=== PATIENT | female | born 1960 | race Caucasian/White ===

== ENCOUNTER 2016-07-14 12:47 | Inpatient (IN) | payer OTHER ==
[~2016-07-14] VITALS: Ht 162.6 cm; Wt 75.1 kg
[~2016-07-14 12:47] MED LIST: BACTRIM DS TAB1 EACH PO; BRISDELLE7.5 MG PO; BUPROPION XL150 MG PO; CENTRUM1 TA1 PO; FLUOXETINE HCL20 M2 PO; GABAPENTIN100 M2 PO; PAXIL20 MG PO; RISPERIDONE1 M1 PO
--- NOTE | 2016-07-14 13:07 | NUR ---
PT TO TRIAGE FOR +SI/+HI. PT CALLED HER DAUGHTER TODAY AND STATED THAT SHE FEELS LIKE HURTING SOMEONE AND SHE "FEEL CRAZY", AND WANTS TO HURT HERSELF WITH NO PLAN. PT DENIES ETOH, DENIES ILLICIT DRUG USE. VSS. HX OF BIPOLAR DISEASE.
--- NOTE | 2016-07-14 13:10 | ED PSYCHIATRIC COMPLAINT ---
History of Present Illness General Chief Complaint: Psychiatric Related Complaint Stated Complaint: +SI +HI "I FEEL EVIL" Source: patient Exam Limitations: acute psychiatric disorder Vital Signs & Intake/Output Vital Signs & Intake/Output Vital Signs Date Time Temp Pulse Resp B/P Pulse O2 O2 Flow FiO2 Ox Delivery Rate 07/14 1849 96.7 76 16 136/84 98 Room Air 07/14 1347 Room Air 07/14 1257 98.8 85 16 167/98 97 Room Air Allergies Coded Allergies: NO KNOWN ALLERGIES (09/14/15) Reconcile Medications Bupropion HCl (Bupropion XL) 150 MG TAB.ER.24H 1 TAB PO QHS UNKNOWN (Reported ) Fluoxetine HCl 20 MG CAPSULE 1 CAP PO DAILY UNKNOWN (Reported) Gabapentin 100 MG CAPSULE 2 CAP PO 4 TIMES/DAY UNKNOWN (Reported) Risperidone 1 MG TABLET 1 TAB PO BID UNKNOWN (Reported) Triage Note: PT TO TRIAGE FOR +SI/+HI. PT CALLED HER DAUGHTER TODAY AND STATED THAT SHE FEELS LIKE HURTING SOMEONE AND SHE "FEEL CRAZY", AND WANTS TO HURT HERSELF WITH NO PLAN. PT DENIES ETOH, DENIES ILLICIT DRUG USE. VSS. HX OF BIPOLAR DISEASE. Triage Nurses Notes Reviewed? yes HPI: Patient presents for evaluation of suicidal ideation homicide ideation and "feeling evil". Pt has had this is the past due to bipolar disorder. compliant with medications. Patient states that she has been thinking about "doing something to someone, anyone" for a while and became particularly acute over the past 3 weeks and during the holidays. She has thought about "maybe shooting people" but she denies availability of a gun. In addition she does hear voices intermittently and her daughter confirms that the patient complained the voices were telling her to "do it". Past History Travel History Traveled to [place] past 21 day No Medical History Any Pertinent Medical History? 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 No Review of Systems Review of Systems Constitutional: Reports: no symptoms. EENTM: Reports: no symptoms. Respiratory: Reports: no symptoms. Cardiovascular: Reports: no symptoms. GI: Reports: no symptoms. Genitourinary: Reports: no symptoms. Musculoskeletal: Reports: no symptoms. Skin: Reports: no symptoms. Neurological/Psychological: Reports: see HPI. Hematologic/Endocrine: Reports: no symptoms. Immunologic/Allergic: Reports: no symptoms. All Other Systems: Reviewed and Negative Physical Exam Physical Exam General Appearance: SEE BELOW Neurological/Psychiatric: SEE BELOW Comments: General: Alert, calm, cooperative Head: Normocephalic, atraumatic Eyes: Normal inspection, no nystagmus, EOMI Ears: Normal inspection Nose: Normal inspection Throat: Moist mucosa Neck: Supple, no goiter Heart: Regular rate and rhythm, no murmurs rubs or gallops Lungs: Clear to auscultation bilaterally with good air entry Abdomen: Soft nontender nondistended, normal bowel sounds Chest: Nontender Extremities: Normal range of motion grossly, mild tremors present, no cyanosis clubbing or edema of the upper extremities Neurologic: cranial nerves II through XII grossly intact, speech clear, gait normal Psychiatric: No apparent delusions or hallucinations, no pressured speech or thought blocking SAD PERSONS Done? patient not suicidal Progress Differential Diagnosis: DEPRESSION, BIPOLAR DISORDER, PERSONALITY DISORDER Plan of Care: Orders Procedure Date/time Status Admit to inpatient psych 07/14 1936 Active Add-on Test (ER Only) 07/14 1603 Active DEPAKOTE LEVEL 07/14 1330 Complete ED CRISIS PSYCH CONSULT 07/14 1321 Active URINE DRUG SCREEN FOR ER ONLY 07/14 1309 Complete ETHANOL 07/14 1309 Complete CBC WITHOUT DIFFERENTIAL 07/14 1309 Complete BASIC METABOLIC PANEL 07/14 1309 Complete Laboratory Tests 07/14/16 1330: Valproic Acid 25.7 L, Serum Alcohol < 10.0 07/14/16 1330: Anion Gap 13, Estimated GFR > 60, BUN/Creatinine Ratio 12.0, Glucose 95, Calcium 9.7, CBC w Diff NO MAN DIFF REQ, RBC 4.63, MCV 93.5, MCH 32.3 H, RDW 13.4, MPV 7.9, Gran % 72.8, Lymphocytes % 18.2 L, Monocytes % 8.0, Eosinophils % 0.4, Basophils % 0.6, Absolute Granulocytes 3.3, Absolute Lymphocytes 0.8 L, Absolute Monocytes 0.4, Absolute Eosinophils 0, Absolute Basophils 0, PUBS MCHC 34.5, Urine Opiates Screen < 100.00, Methadone Screen < 40, Barbiturate Screen < 60, Ur Phencyclidine Scrn < 6.00, Amphetamines Screen < 100, U Benzodiazepines Scrn < 85, Urine Cocaine Screen < 50, Urine Cannabis Screen < 5.00 Comments: 07/14/2016 3:15:37 PM I HAVE UPDATED LAURA ON TEST RESULTS. VERY BUSY DAY TODAY. EXPECTING ADDITIONAL CRISIS CLINICIANS SHORTLY. 07/14/2016 5:00:50 PM patient has been evaluated by the open hearth laborer. Likely to be admitted. 07/14/2016 7:19:55 PM Laura is being admitted to inpatient psychiatry. Departure Departure Disposition: STILL A PATIENT Condition: Stable Clinical Impression Primary Impression: Severe major depression with psychotic features Referrals: SAMIA BATES MD (PCP/Family) Departure Forms: Customer Survey General Discharge Information Psych Admission Note Psychiatric Admission: I have seen and evaluated LAURA GRACE. I have also reviewed all the pertinent lab results and diagnostic results. LAURA GRACE will be admitted to our inpatient Psychiatric unit for treatment and care. LAURA GRACE will be admitted to our inpatient Psychiatric unit for treatment and care.
--- NOTE | 2016-07-14 13:10 | NUR ---
RECIEVED TO RIK Asher UP TO BATHROOM. DTR AT BEDSIDE
--- NOTE | 2016-07-14 13:30 | NUR ---
BLOOD DRAWN AND SENT TO LAB 1SST 1 LAV URINE ALSO COLLECTED AND SENT
--- NOTE | 2016-07-14 13:34 | NUR ---
PT ON EDGE OF STRETCHER. STATES SHE HAS BEEN DEPRESSED AND HAVING THOUGHTS OF HARMING OTHERS. DENIES CONCRETE PLAN TO HARM ANYONE. STATES SHE HEARS HER OWN VOICE TELLING HER WHAT TO DO AND IT KEEPS REPEATING IN HER HEAD. STATES SHE FEELS ANXIOUS AT PRESENT BUT IS COOPERATIVE. DTR AT BEDSIDE
[2016-07-14 13:46] LABS: ABSOLUTE BASOPHIL COUNT 0 /CUMM (0.0-0.2); ABSOLUTE EOSINOPHIL COUNT 0 /CUMM (0.0-0.7); ABSOLUTE GRANULOCYTE CT 3.3 /CUMM (1.4-6.5); ABSOLUTE LYMPH COUNT 0.8 /CUMM (1.2-3.4); ABSOLUTE MONOCYTE COUNT 0.4 /CUMM (0.10-0.60); BASOPHIL % 0.6 % (0.0-2.0); EOSINOPHIL % 0.4 % (0-5); GRANULOCYTE % 72.8 % (42.2-75.2); HEMATOCRIT 43.2 % (37-47); MEAN CORPUSCULAR HGB 32.3 PG (27.0-31.0); MEAN CORPUSCULAR HGB CONC 34.5 G/DL (33.0-37.0); MEAN CORPUSCULAR VOLUME 93.5 FL (81.0-99.0); MEAN PLATELET VOLUME 7.9 FL (7.4-10.4); PLATELET COUNT 195 /CUMM (130-400); RBC DISTRIBUTION WIDTH 13.4 % (11.5-14.5); RED BLOOD CELL CT 4.63 /CUMM (4.20-5.40); WHITE BLOOD CELL COUNT 4.6 /CUMM (4.8-10.8)
--- NOTE | 2016-07-14 15:28 | NUR ---
PT SITTING ON EDGE OF STRETCHER WITH DTR, CALM AND COOPERATIVE. PT STATES NO NEEDS, STATES SHE ATE LUNCH
--- NOTE | 2016-07-14 15:58 | NUR ---
PT MOVED TO ROOM 14.
--- NOTE | 2016-07-14 15:58 | NUR ---
CRISIS NOTIFIED THAT TOX SCREEN IS NEGATIVE. DTR WAITING WITH PT, HOPES TO BE HERE WHEN SEEN BY CRISIS
--- NOTE | 2016-07-14 16:53 | ED PSYCH CRISIS CONSULTATION ---
Crisis Consult Basic Assessment Date of Consult: 07/14/16 Responsible Person/Accompanied By: came in with daughter Insurance Authorization: Insurance #1: Insurance name: AMINA WAY Phone number: Policy number: [id number] Group number: Authorization number: ED Provider: Patient's ED Provider: MAILE GAN MD Primary Care Physician: Patient's PCP: SAMIA BATES MD PCP's Current Psychiatrist: Mahsa Byers APRN in [place] Chief Complaint: Psychiatric Related Complaint Patient's Quote: "racing thoughts" Present Illness: Pt is a 56 year old female, arriving to ER with her daughter Gabriela. Pt has been admitted to [facility] in 2016 twice for a similiar presentation. Pt states she is having intrusive thoughts about hurting someone, she reprts she is aware she does not want to hurt anyone, primarily it is the thought that is bothersome. She reports pervasive thinking about how she had been unfaithful in her marriage 10 years ago, she often "makes up stories about how she has cheated on her with other men", pt states "I feel evil:", Pt admits she misses her medications often, she has a history of noncompliance specfically with IOP level of care, and medication management. Pt admits she drinks regularly atleast 3 times a week several glasses of wine each sitting. She does not indicate this to be problematic. Pt tox screen is negative. She has a history of Major depressive D/O recurrent with psychosis. Pt is a Mother to 5 children her youngest is 26 she lives in [place] with him and her . She spends a lot of time alone at home, which is not helpful when her symptoms become unmangeable. Patient's Address: [address] [place] [address] Other Phone Number: Who Do You Live With? Family Family/Informants Interviewed: Gabriela works as an RN here on [address], she supports her Mother's admission and offered she is concerned that she most likely has not been compliant with medications. Allergies - Coded Allergies: NO KNOWN ALLERGIES (09/14/15) Current Medications - Scheduled Medications Bupropion HCl (Bupropion XL) 150 MG TAB.ER.24H 1 TAB PO QHS UNKNOWN #30 ( Reported) Entered as Reported by GABRIELE DAN on 03/02/161923 Fluoxetine HCl 20 MG CAPSULE 1 CAP PO DAILY UNKNOWN #30 (Reported) Entered as Reported by GABRIELE DAN on 03/02/161923 Gabapentin 100 MG CAPSULE 2 CAP PO 4 TIMES/DAY UNKNOWN #211 (Reported) Entered as Reported by GABRIELE DAN on 03/02/161924 Risperidone 1 MG TABLET 1 TAB PO BID UNKNOWN #60 (Reported) Entered as Reported by GABRIELE DAN on 03/02/161922 Laboratory Results: Laboratory Tests 07/14/16 1330: Valproic Acid 25.7 L, Serum Alcohol < 10.0 07/14/16 1330: Anion Gap 13, Estimated GFR > 60, BUN/Creatinine Ratio 12.0, Glucose 95, Calcium 9.7, CBC w Diff NO MAN DIFF REQ, RBC 4.63, MCV 93.5, MCH 32.3 H, RDW 13.4, MPV 7.9, Gran % 72.8, Lymphocytes % 18.2 L, Monocytes % 8.0, Eosinophils % 0.4, Basophils % 0.6, Absolute Granulocytes 3.3, Absolute Lymphocytes 0.8 L, Absolute Monocytes 0.4, Absolute Eosinophils 0, Absolute Basophils 0, PUBS MCHC 34.5, Urine Opiates Screen < 100.00, Methadone Screen < 40, Barbiturate Screen < 60, Ur Phencyclidine Scrn < 6.00, Amphetamines Screen < 100, U Benzodiazepines Scrn < 85, Urine Cocaine Screen < 50, Urine Cannabis Screen < 5.00 Past History Past Medical History Neurological: NONE EENT: NONE Cardiovascular: NONE Respiratory: NONE Gastrointestinal: NONE Hepatic: NONE Renal: NONE Musculoskeletal: osteoarthritis, MILD ARTHRITIS IN HANDS Psychiatric: bipolar disease Endocrine: NONE Blood Disorders: NONE Cancer(s): NONE 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 Past Surgical History Surgical History: non-contributory Psychosocial History Strengths/Capabilities: Supportive family, willing to accept tx Physical Limitations (Interventions): None noted Psychiatric Treatment History Psych Treatment Psychiatric Treatment Yes Inpatient Treatment Yes Outpatient Treatment Yes Location of Treatment [facility] Reason for Treatment MDD, recurrent with psychosis Dates of Treatment 11/2015 Response to Treatment Improved mood and stability Diagnosis by History: Depression Substance Use/Abuse History Drug Use/Abuse Substances Used/Abused No Substance Abuse Treatment Substance Abuse Treatment Past Substance Abuse [place] No Current Mental Status Mental Status Orientation: Person, Place, Situation Affect: Anxious, Depressed, Inappropriate Speech: Perseveration Neuro-vegetative: Appetite Decreased, Concentration Poor, Helpless, Loss of Interest, Sleep Disturbance Appearance Appearance- Dress/Hygiene: unkempt, in hospital attire Behaviors Thought Process: Irrational Thought Content: Delusions, Obsessions Insight: Poor SI/HI Risk Assessment Past Suicidal Ideation/Attempts Yes Current Suicidal Ideation/Att Yes Past Homicidal Ideation/Att: Yes Current Homicidal Ideation/Attempts Yes Degree of Intent: Thoughts/No Intent Gravely Disabled: Lack of Insight Risk Factors: high anxiety/distress, lack of outcome concern, limited support Lethality Ratin PTSD Checklist PTSD Done? 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 Follow-up Appt Date: 07/14/16 Follow-Up Appt Time: 184 Contact: [facility] Telephone: [phone] Rationale for Disposition: Consulted with Dr. Arteaga pt to be admitted to [facility], for med management and mood stability. Pt expressing intrusive thoughts and thoughts of si. Type of IP Admission: Voluntary Additional Instructions: Pt to be admitted to [facility] and sign in volunarily Referrals SAMIA BATES MD (PCP/Family)
--- NOTE | 2016-07-14 16:58 | NUR ---
SEEN BY CRISIS. DTR NO LONGER AT BEDSIDE.
--- NOTE | 2016-07-14 17:38 | NUR ---
PT ASKING FOR SOMETHING FOR ANXIETY. DR GAN NOTIFIED AND ATAUNDREA ORDERED
--- NOTE | 2016-07-14 18:48 | NUR ---
PT SITTING UP IN BED, WATCHING TV. PLEASANT AND INTERACTIVE. PARTICIPATED IN DIVERSIONAL CONVERSATION.
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
--- NOTE | 2016-07-14 19:35 | NUR ---
REPORT CALLED TO [facility] , REPORT GIVEN TO ANAHI SOLO
--- NOTE | 2016-07-14 20:10 | SOCIAL WORKER SOCIAL HX PSYCH ---
Social History Basic Assessment Insurance Authorization: Insurance #1: Insurance name: AMINA WAY Phone number: Policy number: [id number] Group number: Authorization number: Curr Source of Income/Entitlements: Medicaid, Husbands business [place] Primary Care Physician: Patient's PCP: SAMIA BATES MD PCP's Present Problem: Pt is a 56 year old female, arriving to ER with her daughter Gabriela. Pt has been admitted to [facility] in 2016 twice for a similiar presentation. Pt states she is having intrusive thoughts about hurting someone, she reprts she is aware she does not want to hurt anyone, primarily it is the thought that is bothersome. She reports pervasive thinking about how she had been unfaithful in her marriage 10 years ago, she often "makes up stories about how she has cheated on her with other men", pt states "I feel evil:", Pt admits she misses her medications often, she has a history of noncompliance specfically with IOP level of care, and medication management. Pt admits she drinks regularly atleast 3 times a week several glasses of wine each sitting. She does not indicate this to be problematic. Pt tox screen is negative. She has a history of Major depressive D/O recurrent with psychosis. Pt is a Mother to 5 children her youngest is 26 she lives in [place] with him and her . She spends a lot of time alone at home, which is not helpful when her symptoms become unmangeable. Primary Language? Somali Language(s) Spoken At Home: Somali Living Situation Rents or Owns Home? owns Feel Safe Where You Are Living No Feel Safe in Relationships? No Allergies - Coded Allergies: NO KNOWN ALLERGIES (09/14/15) Current Medications - Scheduled Medications Bupropion HCl (Bupropion XL) 150 MG TAB.ER.24H 1 TAB PO QHS UNKNOWN #30 ( Reported) Entered as Reported by GABRIELE DAN on 03/02/161923 Fluoxetine HCl 20 MG CAPSULE 1 CAP PO DAILY UNKNOWN #30 (Reported) Entered as Reported by GABRIELE DAN on 03/02/161923 Gabapentin 100 MG CAPSULE 2 CAP PO 4 TIMES/DAY UNKNOWN #211 (Reported) Entered as Reported by GABRIELE DAN on 03/02/161924 Risperidone 1 MG TABLET 1 TAB PO BID UNKNOWN #60 (Reported) Entered as Reported by GABRIELE DAN on 03/02/161922 Consequences of Psych Med Use: Does not take medications as prescribed, forgets to take them sometimes Past History Past Medical History Neurological: NONE EENT: NONE Cardiovascular: NONE Respiratory: NONE Gastrointestinal: NONE Hepatic: NONE Renal: NONE Musculoskeletal: osteoarthritis, MILD ARTHRITIS IN HANDS Psychiatric: bipolar disease Endocrine: NONE Blood Disorders: NONE Cancer(s): NONE CRITICAL CARE TRANSPORT NURSE/Reproductive: MENOPAUSE Past Surgical History Surgical History: non-contributory /Family History Place/Country of Origin: [place], [place] Childhood Family Constellation: Parents and one brother Primary Childhood Caretakers: father, mother Family Life During Childhood: "great" DCF Involvement? No Mother's Age (Current/): 76 Relationship w/Mother: "Great" Father's Age (Current/): 78 Relationship w/Father: "Great" Any Sibling(s)? Yes Sibling's Gender(s)/Age(s): male Sibling 1: Relationship w/Sibling(s): " It's always been good" Relationship w/Friends: The patient reports that she does not spend much time with friends, but rather spends a lot of time with family. Family Psych/Sub Abuse/Add Hx: Brother has issues with alcohol and is currently living in a sober house. Number of Pregnancies: 5 Number of Miscarriages: 0 Number of Abortions: 0 Abuse/Trauma History Trauma History/Current Trauma: The patient reports that it was very hard for her to move on from her first marriage, as her cheated on her. Victim or Perpretator? victim Patient's Age at Time of Trauma: 0 History of Trauma/Abuse Treatment? No Abuse/Trauma Treatment: N/A Legal History Legal Guardian/Address/Phone: Self Current Legal Status: none Hx of Juvenile Legal Charges? No Hx of Adult Legal Charges? No Civil Proceedings: N/A Domestic Relations Court: N/A Child Protective Serv Involvmnt N/A Psychosocial History Primary Support System: , father, mother, daughter Strengths/Capabilities: Supportive family, willing to accept tx Weaknesses: Pt has been struggling with guilt for years and usually thinks she can manage her problems on her own leading her to non-compliance. Physical Limitations (Interventions): None noted Last Physical: " a long time ago" History of Seizures? No History of Blackouts? No ADL Limitations: None noted Essie/Social/Peer Relations The patient reports that she spends the majority of her time with family. Meaningful Activities: Spending time with family Childhood Moravian: Jewish Current Bahai Affiliation: Jewish Is Spirituality Important to You? yes Cultural/Ethnic Issues: None noted Are There Developmental Issues? No Milestones Achieved: fine motor, gross motor Psychiatric Treatment History Psych Treatment Inpatient Treatment Yes Outpatient Treatment Yes Location of Treatment CPS Reason for Treatment MDD, recurrent with psychosis Dates of Treatment 11/2015 Response to Treatment Improved mood and stability Precipitating Factors: being alone, med non-compliance Current Hydro Generation Supervisor: She states she went to her twice Mahsa Byers aprn Treatment of Prior Episodes: Aug and September 2015 Diagnosis: Depression Psychodynamic Issues: Pt continues to experience guilt over cheating on her husnad over 10 years ago Risk Factors: high anxiety/distress, lack of outcome concern, limited support Substance Use/Abuse History Drug Use/Abuse Substance Used/Abused No History Have Had Periods of Sobriety? Yes Have You Ever Attended AA? 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 of Jobs in Last 5 Years: 2 Attendance: Normal Performance: Average Comments: N/A History Have You Been in The ? No If Yes, Explain: N/A Date of Discharge: N/A Current Mental Status Mental Status Orientation: Person, Place, Situation Affect: Anxious, Depressed, Inappropriate Speech: Perseveration Neuro-vegetative: Appetite Decreased, Concentration Poor, Helpless, Loss of Interest, Sleep Disturbance Appearance Appearance- Dress/Hygiene: unkempt, in hospital attire Behaviors Thought Process: Irrational Thought Content: Delusions, Obsessions Insight: Poor SI/HI Risk Assessment Past Suicidal Ideation/Attempts Yes Current Suicidal Ideation/Att Yes Past Homicidal Ideation/Att: Yes Current Homicidal Ideation/Attempts Yes Degree of Intent: Thoughts/No Intent Gravely Disabled: Lack of Insight Lethality Ratin - Conclusion and Recommendations for treatment - and discharge planning
--- NOTE | 2016-07-14 20:31 | NUR ---
PT TRANSPORTED TO FLOOR
[2016-07-14] MEDS ORDERED: BENZTROPINE MESY1 M1 PO (21:37)
[2016-07-14] MEDS ORDERED: CITALOPRAM HBR20 MG PO (21:38)
[2016-07-14] MEDS ORDERED: RISPERIDONE0.5 M1 PO (21:41)
[2016-07-14] MEDS ORDERED: DIVALPROEX SOD500 M3 PO (21:43)
--- NOTE | 2016-07-14 22:24 | NUR ---
PT. ADMITTED TO FLOOR ALERT ORIENTED COOPERATIVE WITH CARE. INTERVIEW OBTAINED PT. ORIENTED TO SURROUNDINGS VITALS STABLE. STATED "I WAS HAVING BAD THOUGHTS ABOUT MY AND I KNEW I NEEDED TO COME IN AND GET MEDICATIONS STRAIGHTENED OUT".
[2016-07-15] VITALS (7 sets, daily range): BP systolic 116–141; BP diastolic 71–83
--- NOTE | 2016-07-15 11:23 | CPS MD/APRN INITIAL ASSE PSYCH ---
Psychiatric Admission Lumber Puller's Note Reviewed: Yes Patient Seen and Examined: Yes Identifying Information: Pt is a 56 year old female, who arrived at the ER with her daughter Caren. Chief Complaint: "I have racing thoughts." Reaction to Hospitalization: Calm, and cooperative. History of Present Illness Onset of Illness: Chronic Circumstances Leading to Admission: Patient self presented to the emergency department with her daughter Caren, reports having suicidal and homicidal thoughts. Patient was admitted to [facility] in August and November 2015, and then to [facility] from the [place] [facility] in February 2016. Problem(s) Justifying Need for Admission: Suicidal ideation, homicidal ideation, depression, racing thoughts. Rule out auditory hallucinations, rule out bipolar disorder. Past Psychiatric History Past Diagnosis(es)- if any: Major depression. Bipolar disorder. Generalized anxiety disorder. Panic disorder. Past Precipitating Factors- if any: Perseverating thoughts about past indiscretions. R/O EtOH use disorder. - Include inpatient and outpatient treatment Treatment History: Patient was admitted to [facility] in August and November 2015, and then to [facility] from the [place] ER in February 2016. [place] [facility] and Oupatient Therapist [facility] in [place]. One visit with Ellie Salas APRN a couple of months ago. History of Suicide Attempts or Gestures February 2016, as per ER notes, patient took "a handful of pills" in order to not wake up. Substance Abuse History: EtOH. Allergies: Coded Allergies: NO KNOWN ALLERGIES (09/14/15) Home Med List: As per patient's medication list, handwritten by her daughter: Depakote 500 mg twice daily. Citalopram 20 mg daily. Benztropine 1 mg daily. Risperdal 0.5 mg twice daily. - Include any medical condition(s) that may - impact the patient's recovery/remission Past History Medical History Neurological: NONE EENT: NONE Cardiovascular: NONE Respiratory: NONE Gastrointestinal: NONE Hepatic: NONE Renal: NONE Musculoskeletal: osteoarthritis, MILD ARTHRITIS IN HANDS Psychiatric: bipolar disease Endocrine: NONE Blood Disorders: NONE Cancer(s): NONE WEIGHER PACKING/Reproductive: MENOPAUSE History of MRSA: No History of VRE: No History of CDIFF: No Isolation History: Standard Surgical History Surgical History: none (Denies) Psychiatric Family/Social Hx Family History Psychiatric Illness: Denies. Substance Use: Patient states her brother is an alcoholic. States her three sons have a history of Percocet abuse, currently on Suboxone. Suicides: Denies Social History Living Situation: Patient reports that she lives at home with her , her 25-year-old son Lucas, and 30 year-old daughter Lorrie. She has 2 other adult sons, and a adult daughter who no longer live at home. She states that her owns a [employer] company. Significant Relationships (family/friends): Patient reports that she lives at home with her , her 25-year-old son Lucas, and 30 year-old daughter Lorrie. She has 2 other adult sons, and a adult daughter who no longer live at home. She states that her owns a [employer] company. 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 Legal: Denies. Healthly Behaviors Screening Tobacco Screening Tobacco Use from ED Docu: Current Daily Use Daily Tobacco Use Amount/Type: => 5 Cigarettes daily - If tobacco counseling indicated - the following topics are required. - #1 Recognizing dangerous situations. - #2 Coping Skills. - #3 Basic information about quitting. Status of Tobacco Cessation Counseling: #1, #2 AND #3 Completed Cessation Med Status: Nicotine Gum Ordered Alcohol Screening - ETOH screen POS if BAL >=80 or Audit-C>= M4/F3 Audit-C Score from Diag Assess: 7 Blood Alcohol Level: Laboratory Tests 07/14 1330 Toxicology Serum Alcohol (<10 MG/DL) < 10.0 Alcohol Use Screening Results: Pos per Audit C &/or BAL - If ETOH counseling indicated - the following topics are required. - #1 Express concern about the patient's - drinking at unhealthy levels, include informing - of national norms for moderate drinking: - men <= 14 drinks/week, max 4 drinks/occasion - women <= 7 drinks/week, max 3 drinks/occasion - #2 Providing feedback, including linking alcohol to - negative physical effects (liver injury, hypertension) - negative emotional effects (relationship problems and - depression) - negative occupational consequences (reduced work - performance) - #3 Advising the patient to abstain from alcohol or - to drink below national norms for moderate drinking - (as listed above). Status of ETOH Use Counseling: #1, #2 AND #3 Completed. Metabolic Screening - Screen if on a Neuroleptic Medication - Metabolic screening should include: - Blood Pressure, BMI, Glucose or Hgb A1c, & a - Lipid profile from within the past 365 days. Metabolic Screening () Not Applicable, patient not on a neuroleptic. OR ([x]) Patient on a neuroleptic(s) . Enter below results for Glucose or Hemoglobin A1C, and lipid panel if obtained during the last 365 days. BMI: 28.400 Blood Pressure: 116/78 Laboratory Results (If applicable): Lab Cholesterol 192 MG/DL 11/05/15 0809 Cholesterol/HDL Ratio 4 % 11/05/15 0809 Glucose 95 mg/dL 07/14/16 1330 HDL Cholesterol 52 mg/dL 11/05/15 0809 Hemoglobin A1c 5.6 % 08/31/15 1413 LDL Cholesterol, Calc 125 mg/dL 11/05/15 0809 Triglycerides 79 mg/dL 11/05/15 0809 Exam and Plan Mental Status Examination Ambulation Status: Patient ambulates independently with steady gait. Appearance: Appropriately dressed and groomed Attitude towards examiner: Calm and cooperative. Psychomotor activity: Within normal limits Behavior: Calm and cooperative Quality of speech: Speech is well articulated, goal directed, average in rate, volume and tone Affect: Congruent Mood: Euthymic Suicidal Ideation: Patient endorses having passive suicidal thoughts without specific plan or intent to harm herself. Homicidal Ideation: Patient endorses having passive thoughts of killing someone, who she would not identify. States she has no plan or intent to actually harm anyone. Hallucinations: States she sometimes hears her own voice in her head, denies actually hearing a voice. Paranoid/Delusional Material: Denies Difficulties with thought organization: Within normal limits Insight: Poor Judgment: Poor Orientation: Alert and oriented to person, place, time and situation. Cognition: Within normal limits Memory Function: Within normal limits, not tested at this time. Estimate of intellectual functioning: Average Assets/Strengths Patient Identified Assets/Strengths: "I don't know if I have any. I'm lost in my life." Impression/Plan Impression and Plan: This is the patient's fourth inpatient psychiatric stay since August 2015 ( twice here, and once at [facility] in 2016). Her main complaint is racing thoughts. She also reports depression, anxiety and passive suicidal and homicidal ideation. She reports that she feels dissatisfied with her life. Plan: Discontinued Depakote as it is not clear that it has been efficacious in the past, and the patient states that she will not take it at home because she is afraid of hair loss. She also reports drinking 2-3 glasses of wine at least 2 or 3 times per week. Continue risperidone for racing thoughts, increase dose as appropriate. Continue CIWA as ordered. - Include all active medical diagnosis that require tx DSM 5 Diagnosis(es): Psy Discharge Primary Diag: Major Depressive d/o, recurrent, severe, with psychotic features. Psy Discharge Secondary Diag: Rule out Mood Disorder Rule out General anxiety disorder Rule out Panic disorder - Initial Tx Plan for Active Psych & Medical Conditions Treatment Plan: PLAN: The patient will be monitored on the unit for safety, mood stability, depression , racing thoughts, suicidal ideation, homicidal ideation, and possible auditory hallucinations. Additional information is needed from collaterals, including her and daughter. Anticipate once clinically stable, that the patient will be discharged to home and family and be referred to IOP. - Factors that would help patient function - in a less restrictive setting. Factors: Alleviation of depression and racing thoughts. No longer having suicidal and homicidal ideation.
--- NOTE | 2016-07-15 14:38 | NUR ---
PT IS COMPLIANT AND COOPERATIVE. MOOD IS STABLE WITH A FLAT AFFECT. PT DENIES SI/HI AT THIS TIME, NO COMPLAINTS OFFERED. NO S/S OF DETOX NOTED OR REPORTED, NO SCORING ON CIWA. PT HAS BEEN WITHDRAWN AND ISOLATIVE IN BED MUCH OF SHIFT. PT HAS SOME INTERACTION WITH OTHERS WHEN PRESENT IN COMMUNITY. PT HAS ATTENDED ONE GROUP. VITALS ARE STABLE, APPETITE IS GOOD.
--- NOTE | 2016-07-15 16:17 | SOCIAL WORKER PROG NOTE PSYCH ---
Social Work Progress Note Progress Note Suzanne talked about how she wasn't taking her Depakote consistently and that she didn't feel it was really helping her. She is looking to start a new mood stablizer. She spent alot of time talking about the relationship between her and her . She said that since she told her about the affair she had 10 years ago, she doesn't know if he really wants to stay in the marriage. She is always left wondering what he's thinking and feeling. She stated he is not open to going to marriage counseling and stated to her that it is her problem to fix, he didn't do anything wrong. She feels unhappy with the way things are going in her life, but then looks at the things that she has and feels ungrateful because she feels she has everything that anyone could ever want. She puts alot of blame on herself for how things have been going. She wishes that she could return to the life she once felt and what she considers "normal". Normal to her would be feeling like playing with her grandkids, having interests in things again, and being able to return to work. Despite the problems she feels that she has with her , she knows that she needs to work on her and helping herself feel better. She seems unclear at this time on how things will return [place] airport for her marriage, she just feels that they are "going through the motions". When asked about her thoughts about hurting others she acknowledged that she was having thoughts about a man who lives with her parents. She said he used to come to the house, but no one likes him in her family and he doesn't come over anymore. She also has been having thoughts about her brother rhiannon, but those thoughts sounded to me as they were more sexual in nature. She feels disgusted by having these thoughts and states that they are so intense and intrusive she is troubled by them. In the past she has had thoughts of hurting family members. She states that she doesn't think she would act on the thoughts. I asked her about having her in for a meeting and she didn't seem to think he would be open to coming in and sounded like she didn't want to pursue it.
--- NOTE | 2016-07-15 16:17 | SOCIAL WORKER TX PLAN PSYCH ---
Treatment Plan - Please Document: - Evidence that there is ongoing collaboration between - the patient and the interdisciplinary team, - including the patient's active participation and - responsibility for engaging in the treatment regimen, - and that the treatment plan is individualized and - relevant to the patient's conditions. - Treatment plan should reflect documentation indicating - that all active therapeutic efforts are included. Strengths/Capabilities: Supportive family, willing to accept tx Physical Limitations (Interventions): None noted Patient Identified Trmt Goals: "I need to explore my medications" Discharge Plan: Patient would benefit from IOP, but refusing at this time. Patient is connected to an outpatient prescriber and therapist. Problem/Goals #1 Problem #1: depression Goal (Short Term): Patient will explore medication changes with the RAILROAD CARMAN Goal (Judo Instructor): patient will develop 2 coping skills that she can utilize to help manage racing/ intrusive thoughts Interventions: Patient will be offered medication management with the RAILROAD CARMAN, patient will be offered groups on symptom management, coping skills, self-esteem, relaxation, spirituality, accupuncture. Mechanical Applications Engineer will discuss family and interpersonal stressors and coping skills to help manage thoughts. egg worker will coordinate with family and assist in aftercare planning. DSM5/PS Stressors/Medical Prob Diagnosis' (DSM 5, Stressors, Medical): MDD, 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 Treatment Team - Responsibilities of members of the treatment team include: - Medication Management- MD or RAILROAD CARMAN - Medication Administration and Monitoring- Nurse - Group Therapy- Occupational Therapist - 1:1 Therapy,Disch Planning,family involvement-Mechanical Applications Engineer
--- NOTE | 2016-07-15 18:01 | History & Physical ---
General Information and HPI MD Statement: I have seen and personally examined LAURA GRACE and documented this H&P. The patient is a 56 year old F who presented with a patient stated chief complaint of feeling evil "". Source of Information: patient, family Exam Limitations: no limitations History of Present Illness: 56-year-old white female for the last 3 weeks has been having auditory hallucinations regarding has had 2 previous admission with the same issues having racing thoughts she stated that the Depakote was not working she wasn't taking it correctly. Patient is admitted for evaluation and treatment adjustment of medications. Allergies/Medications Allergies: Coded Allergies: NO KNOWN ALLERGIES (09/14/15) Home Med list Benztropine Mesylate 1 MG TABLET 1 TAB PO BID MOOD STABILITY (Reported) Bupropion HCl (Bupropion XL) 150 MG TAB.ER.24H 1 TAB PO QHS UNKNOWN (Reported ) Fluoxetine HCl 20 MG CAPSULE 1 CAP PO DAILY UNKNOWN (Reported) Risperidone 0.5 MG TABLET 1 TAB PO BID MOOD STABILITY (Reported) Risperidone 1 MG TABLET 1 TAB PO BID UNKNOWN (Reported) Compliance With Home Meds: POOR Past History Travel History Traveled to [place] past 21 day No Medical History Neurological: NONE EENT: NONE Cardiovascular: NONE Respiratory: NONE Gastrointestinal: NONE Hepatic: NONE Renal: NONE Musculoskeletal: osteoarthritis, MILD ARTHRITIS IN HANDS Psychiatric: bipolar disease Endocrine: NONE Blood Disorders: NONE Cancer(s): NONE 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 Home Who Do You Live With? spouse Services at Home: None Primary Language: Turkmen ETOH Use: occasional use Illicit Drug Use: denies illicit drug use Functional Ability Ambulation: independent IADLs Independent: shopping, housework, finances, food prep, telephone, transportation , medication admin. 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 Exam & Diagnostic Data Last 24 Hrs of Vital Signs/I&O Vital Signs Date Time Temp Pulse Resp B/P Pulse O2 O2 Flow FiO2 Ox Delivery Rate 07/15 1644 74 141/71 07/15 1644 74 141/71 07/15 1225 76 132/78 07/15 1213 76 132/78 07/15 0810 97.7 73 116/78 07/15 0750 97.7 73 116/78 07/14 1849 96.7 76 16 136/84 98 Room Air Intake & Output 07/15 1600 07/15 0800 07/15 0000 Intake Total Output Total Balance Patient 166 lb Weight Physical Exam General Appearance Alert, Oriented X3, Cooperative, No Acute Distress Skin No Rashes, No Breakdown, No Significant Lesion HEENT PERRLA, EOMI, Mucous Membr. moist/pink Neck Supple, No JVD, No thryomegaly, +2 Carotid Pulse wo Bruit, No LAD Lymphatic Axillary nl, Cervical nl Cardiovascular Regular Rate Lungs Clear to Auscultation, Normal Air Movement Abdomen Normal Bowel Sounds, Soft, No Tenderness, No Hepatospenomegaly, No Masses Neurological Exam Findings: nonfocal Cranial Nerves II through XII: Intact Extremities No Clubbing, No Cyanosis, No Edema, Normal Pulses, No Tenderness/ Swelling Vascular Normal Pulses, Pulses Symmetrical Last 24 Hrs of Labs/Miguel: Laboratory Tests 07/14/16 1330: Valproic Acid 25.7 L, Serum Alcohol < 10.0 07/14/16 1330: Anion Gap 13, Estimated GFR > 60, BUN/Creatinine Ratio 12.0, Glucose 95, Calcium 9.7, CBC w Diff NO MAN DIFF REQ, RBC 4.63, MCV 93.5, MCH 32.3 H, RDW 13.4, MPV 7.9, Gran % 72.8, Lymphocytes % 18.2 L, Monocytes % 8.0, Eosinophils % 0.4, Basophils % 0.6, Absolute Granulocytes 3.3, Absolute Lymphocytes 0.8 L, Absolute Monocytes 0.4, Absolute Eosinophils 0, Absolute Basophils 0, PUBS MCHC 34.5, Urine Opiates Screen < 100.00, Methadone Screen < 40, Barbiturate Screen < 60, Ur Phencyclidine Scrn < 6.00, Amphetamines Screen < 100, U Benzodiazepines Scrn < 85, Urine Cocaine Screen < 50, Urine Cannabis Screen < 5.00 Diagnostic Data ITS Data Unobtainable at this time Assessment/Plan As Ranked By This Provider Problem List: 1. Suicide ideation 2. Depressed 3. Severe major depression with psychotic features Miscellaneous Miscellaneous Documentation Attending Case Discussed With: AKIL SARAVIA MD Primary Care Physician: SAMIA BATES MD Patient sees these Specialists Psychiatry Level of Patient Care: MONICA Leary Consults Needed: Consulting Specialty: Psychiatry Consulting Physician: Akil Saravia MD Reason for Consult: auditory hallucinations depression
--- NOTE | 2016-07-15 21:35 | NUR ---
PT HAS BEEN COOPERATIVE WITH STAFF AND PEERS, CALM, AND COMPLIANT WITH UNIT RULES THROUGHOUT SHIFT. PT HAS HAD NO MAJOR COMPLAINTS DURING SHIFT. PT MOOD STABLE, AFFECT FLAT AT TIMES AND FULL RANGE AT OTHERS. PT COMMUNICATION IS NORMAL, AND APPETITE IS NORMAL WELL. PT DENIES SI AT THIS TIME.
[2016-07-16] VITALS (7 sets, daily range): BP systolic 121–143; BP diastolic 70–87
--- NOTE | 2016-07-16 13:51 | NUR ---
PT IS COMPLIANT AND COOPEARTIVE. PT IS OUT IN COMMUNITY INTERACTING WELL WITH STAFF AND PEERS. PT IS ISOALTIVE AT TIMES, STAYING IN ROOM READING. PT DID NOT ATTEND GROUPS TODAY. PT DENIES SI/HI. NO SIGN OF WITHDRAWING THIS SHIFT. PT MOOD IS STABLE WITH A FLAT AFFECT.
--- NOTE | 2016-07-16 13:56 | CP SOUTH PROGRESS NOTE PSYCH ---
Psych (Inpt) Progress Note Progress Note Include the following elements, when applicable: Involvement in the active treatment of the patient with behavioral observations of the patient and the patient's response to the treatment. Review of the ongoing treatment process in the context of the treatment plan. Indication of how multi-disciplinary staff members are carrying out the treatment plan. Plans for future interventions and recommendations for revision of the treatment plan. Liaison with other physicians/providers. Progress Note: Pt eager to speak about adding depakote back to her regimen. She stated that she and her daughter (who is an RN) have been taking and feel that she was better with the depakote. Pt notes that since it was discontinued, she has been more irritable, "mean," and short with people. She now feels that she is "on edge" in a way that she has not been before. Pt denies SI or HI. Current Medications Sig/Gayatri Start time Last Medication Dose Route Stop Time Status Admin Benztropine Mesylate 1 MG BID 07/15 999 AC 07/16 PO 0803 Diphenhydramine HCl 50 MG AT BEDTIME PRN 07/14 2300 AC 07/14 PO 2315 Divalproex Sodium 750 MG AT BEDTIME 07/16 2200 UNVr PO Folic Acid 1 MG DAILY 07/16 1000 AC 07/16 PO 0803 Gabapentin 300 MG Q6-PRN PRN 07/15 1630 AC PO Gabapentin 300 MG TID 07/15 1000 DC 07/15 PO 1550 Gabapentin 300 MG TID PRN 07/14 2300 DC PO Lorazepam 1 MG Q1 NEEDED PRN 07/14 2315 AC PO Lorazepam 2 MG Q1 NEEDED PRN 07/14 2315 AC PO Multivitamins 1 TAB 07/16 0800 AC 07/16 PO 0803 Nicotine 2 MG Q2P PRN 07/15 1245 AC PO Risperidone 0.5 MG BID 07/15 1000 AC 07/16 PO 0803 Risperidone 1 MG BID 07/15 1000 AC 07/16 PO 0803 Thiamine HCl 50 MG 07/16 0800 AC 07/16 PO 0803 Laboratory Tests 07/14 07/14 1330 1330 Chemistry Sodium (137 - 145 mmol/L) 138 Potassium (3.5 - 5.1 mmol/L) 3.9 Chloride (98 - 107 mmol/L) 96 L Carbon Dioxide (22 - 30 mmol/L) 29 Anion Gap (5 - 16) 13 BUN (7 - 17 mg/dL) 6 L Creatinine (0.5 - 1.0 mg/dL) 0.5 Estimated GFR (>60 ml/min) > 60 BUN/Creatinine Ratio (7 - 25 %) 12.0 Glucose (65 - 99 mg/dL) 95 Calcium (8.4 - 10.2 mg/dL) 9.7 Hematology CBC w Diff NO MAN DIFF REQ WBC (4.8 - 10.8 /CUMM) 4.6 L RBC (4.20 - 5.40 /CUMM) 4.63 Hgb (12.0 - 16.0 G/DL) 14.9 Hct (37 - 47 %) 43.2 MCV (81.0 - 99.0 FL) 93.5 MCH (27.0 - 31.0 PG) 32.3 H RDW (11.5 - 14.5 %) 13.4 Plt Count (130 - 400 /CUMM) 195 MPV (7.4 - 10.4 FL) 7.9 Gran % (42.2 - 75.2 %) 72.8 Lymphocytes % (20.5 - 51.1 %) 18.2 L Monocytes % (1.7 - 9.3 %) 8.0 Eosinophils % (0 - 5 %) 0.4 Basophils % (0.0 - 2.0 %) 0.6 Absolute Granulocytes (1.4 - 6.5 /CUMM) 3.3 Absolute Lymphocytes (1.2 - 3.4 /CUMM) 0.8 L Absolute Monocytes (0.10 - 0.60 /CUMM) 0.4 Absolute Eosinophils (0.0 - 0.7 /CUMM) 0 Absolute Basophils (0.0 - 0.2 /CUMM) 0 PUBS MCHC (33.0 - 37.0 G/DL) 34.5 Toxicology Urine Opiates Screen (>2000 NG/ML) < 100.00 Methadone Screen (>300 NG/ML) < 40 Barbiturate Screen (>200 NG/ML) < 60 Valproic Acid (50 - 120 ug/mL) 25.7 L Ur Phencyclidine Scrn (>25 NG/ML) < 6.00 Amphetamines Screen (>1000 NG/ML) < 100 U Benzodiazepines Scrn (>200 NG/ML) < 85 Urine Cocaine Screen (>300 NG/ML) < 50 Urine Cannabis Screen (>50 NG/ML) < 5.00 Serum Alcohol (<10 MG/DL) < 10.0 Vital Signs Result Date Time B/P 133/70 07/16 1224 Pulse 80 07/16 1224 Temp 97.3 07/16 0810 Pulse Ox 98 07/14 184 O2 Delivery Room Air 07/14 1848 Resp 16 07/14 1848 MSE Appears as stated age. Cooperative behavior, good, appropriate eye contact. Nl speech rate and prosody. No psychomotor retardation or agitation. Mood OK..but.. Affect irritable,constricted, appropriate, non-liable. Linear and goal directed thought process. Denies SI or HI. Does not appear to be responding to internal stimuli. Denies AVHs, paranoia, or delusions. I/J: limited A/P: Pt with MDD vs BPAD with worsening irritability since discontinuation of depakote. At presentation, worsening depression, anxiety, and HI towards . Restart depakote ER at 750mg qhs, CBC and VPA level need to be checked early next week Continue current meds, may be able to taper +/- discontinue risperidone once mood stablized with depakote Dispo per primary team.
--- NOTE | 2016-07-16 22:17 | NUR ---
PATIENT IS ALERT AND ORIENTED X3, PLEASANT AND COOPERATIVE WITH TREATMENT PLAN; SHE DID NOT ATTEND GROUPS TODAY; SHE STILL APPEARS SLIGHTLY DEPRESSED; SHE STATED "I HAVE A LOT ON MY MIND"; SHE DENIES S/I AT THIS TIME; STILL SOMEWHAT ISOLATIVE.
[2016-07-17] VITALS (8 sets, daily range): BP systolic 126–142; BP diastolic 74–91
--- NOTE | 2016-07-17 14:27 | CP SOUTH PROGRESS NOTE PSYCH ---
Psych (Inpt) Progress Note Progress Note Include the following elements, when applicable: Involvement in the active treatment of the patient with behavioral observations of the patient and the patient's response to the treatment. Review of the ongoing treatment process in the context of the treatment plan. Indication of how multi-disciplinary staff members are carrying out the treatment plan. Plans for future interventions and recommendations for revision of the treatment plan. Liaison with other physicians/providers. Progress Note: Pt wanted to speak once again about mood stablizers. She feels that thoughts continue to race. Grateful for restarting VPA but is concerned about next step if not effective. She notes that her daughter felt that VPA was effective in the past. She noted that sleep was "not bad" and she woke up at 630am, which is nl forher. Pt denies SI or HI. Current Medications Sig/Gayatri Start time Last Medication Dose Route Stop Time Status Admin Benztropine Mesylate 1 MG BID 07/15 999 AC 07/17 PO 0744 Diphenhydramine HCl 50 MG AT BEDTIME PRN 07/14 2300 AC 07/16 PO 202 Divalproex Sodium 750 MG AT BEDTIME 07/16 2200 AC 07/16 PO 202 Folic Acid 1 MG DAILY 07/16 1000 AC 07/17 PO 0744 Gabapentin 300 MG Q6-PRN PRN 07/15 1630 AC 07/17 PO 1005 Lorazepam 1 MG Q1 NEEDED PRN 07/14 2315 AC PO Lorazepam 2 MG Q1 NEEDED PRN 07/14 2315 AC PO Melatonin 5 MG AT BEDTIME 07/17 2200 AC PO Multivitamins 1 TAB 07/16 0800 AC 07/17 PO 0744 Nicotine 2 MG Q2P PRN 07/15 1245 AC PO Risperidone 0.5 MG BID 07/15 1000 AC 07/17 PO 0744 Risperidone 1 MG BID 07/15 1000 AC 07/17 PO 0744 Thiamine HCl 50 MG 07/16 0800 AC 07/17 PO 0744 Vital Signs Result Date Time B/P 135/89 07/17 1221 Pulse 78 07/17 1221 Temp 97.3 07/17 0759 Resp 20 07/16 1947 Pulse Ox 98 07/14 1849 O2 Delivery Room Air 07/14 184 MSE Appears as stated age. Cooperative behavior, good, appropriate eye contact. Nl speech rate and prosody, non-pressured speech. No psychomotor retardation or agitation. Mood racing thoughts Affect irritable,constricted, appropriate, non -liable. Linear and goal directed thought process. Denies SI or HI. Does not appear to be responding to internal stimuli. Denies AVHs, paranoia, or delusions. I/J: limited A/P: Pt with MDD vs BPAD with worsening irritability and racing thoughts since discontinuation of depakote, which has been restarted. Restarted depakote ER at 750mg qhs one day ago, CBC and VPA level need to be checked early next week Continue current meds, may be able to taper +/- discontinue risperidone once mood stablized with depakote Educated patient on other mood stablizers such as lithium as well. Dispo per primary team.
--- NOTE | 2016-07-17 14:41 | NUR ---
out in the community only in room occasionally. Interactions with staff is minimal, slightly more so with peers. Mood is stable, flat to blunted affect. Denied thoughts of self harm when asked.
--- NOTE | 2016-07-17 21:50 | NUR ---
PT OUT IN COMMUNITY ATTENDED WRAP UP VITALS STABLE NO C/O PAIN AT THIS TIME. SMILING TALKING TO STAFF.
[2016-07-18] VITALS (7 sets, daily range): BP systolic 132–145; BP diastolic 79–86
--- NOTE | 2016-07-18 12:54 | SOCIAL WORKER PROG NOTE PSYCH ---
Social Work Progress Note Progress Note Suzanne is well groomed today. She showered and did her hair. She is feeling okay, but still complaining of racing/ intrusive thoughts. She feels like a bad person because of the thoughts. I reminded her that she is not a bad person and she just needs to continue to work on coping skills and stay consistent on her medication. Talked about different ways to ground herself and stay in the present to divert from her thoughts. Discussed importance of taking her meds at prescribed and talking to the doctor about any particular side effects that she is concerned about. Suzanne told me that her daughter Gabriela was looking into a psychiatrist for her to see, she couldn't remember the name. She doesn't think that she will return to the person she was previously seeing due to her not being available very often. Suzanne encouraged me to reach out to her daughter to discuss it further. Talked with Gabriela who told me her Mom was seeing Mahsa Polanco APRN and that Mahsa was only seeing her every few months. She said that she was going to look into her seeing Dr. Arteaga. I told her that Dr. Arteaga is connected to our outpatient program and I'm not sure if she is taking new patients. Gabriela said she can't get her Mom to go to the IOP. She and Suzanne's would drive her but then she wouldn't stay and they would have to pick her up. She doesn't feel that her Mom would be agreeable to going. She just wants her to be connected to someone who can see her a little more frequently like 1-2 a month. She did confirm that things are not good between her Mom and her and that they are basically living together, but don't really talk or do anything and she has told her Mom that she will need to make some decision about it in the future if things don't change and she remains unhappy.
--- NOTE | 2016-07-18 14:00 | NUR ---
PT HAS BEEN CALM AND COOPERATIVE THIS SHIFT. SHE IS ATTENDING GROUPS BUT STAYS SUPERFICIAL IN HER CONVERSATION. SHE DENIES ANY THOUGHTS OF SUICIDE OR SELF HARM. SHE IS COMPLIANT WITH HER MED REGIME
--- NOTE | 2016-07-18 18:12 | CP SOUTH PROGRESS NOTE PSYCH ---
Psych (Inpt) Progress Note Progress Note Progress Note: I discussed this patient's progress to date, current mental status, treatment process in the context of the treatment plan, and discharge planning with staff/ team in the daily morning inpatient team meeting. I also met with the patient myself in individual session. SUBJECTIVE: "My main problem is racing thoughts." OBJECTIVE: Current Medications Sig/Gayatri Start time Last Medication Dose Route Stop Time Status Admin Benztropine Mesylate 1 MG BID 07/15 1000 AC 07/18 PO 0829 Diphenhydramine HCl 50 MG AT BEDTIME PRN 07/14 2300 AC 07/16 PO 2023 Divalproex Sodium 750 MG AT BEDTIME 07/16 2200 AC 07/17 PO 2119 Folic Acid 1 MG DAILY 07/16 1000 AC 07/18 PO 0828 Gabapentin 300 MG Q6-PRN PRN 07/15 1630 AC 07/18 PO 0558 Lorazepam 1 MG Q1 NEEDED PRN 07/14 2315 AC PO Lorazepam 2 MG Q1 NEEDED PRN 07/14 2315 AC PO Melatonin 5 MG AT BEDTIME 07/17 2200 AC 07/17 PO 2118 Multivitamins 1 TAB 0807/16 08 AC 07/18 PO 0828 Nicotine 2 MG Q2P PRN 07/15 1245 AC PO Risperidone 2 MG 08,07/18 0830 AC 07/18 PO 0829 Risperidone 0.5 MG BID 07/15 1000 DC 07/17 PO 2147 Risperidone 1 MG BID 07/15 1000 DC 07/17 PO 2147 Thiamine HCl 50 MG 0807/16 0800 AC 07/18 PO 0828 Vital Signs Date Time Temp Pulse Resp B/P Pulse O2 O2 Flow FiO2 Ox Delivery Rate 07/18 1612 76 145/79 07/18 1555 76 145/79 07/18 1305 86 141/84 07/18 1215 86 141/84 07/18 0810 96.5 90 132/86 07/18 0755 96.5 90 132/86 07/17 2001 96.4 77 126/91 07/17 194 96.4 77 126/91 ASSESSMENT: Patient reports making slow progress. States that she continues to have suicidal and homicidal thoughts however they have "calmed down." She reports continuing racing thoughts. Reports tolerating medications well. She is amenable to increasing Risperdal for continuing racing thoughts, suicidal and homicidal ideation. Depression:5/10; Anxiety:0/10 (with 10 the worst.) Denies auditory hallucinations, visual hallucinations, paranoid ideation. States that her sleep is "pretty good." Her appetite is fine. Speech is well articulated, goal-directed, average in rate, volume and tone. Calm and cooperative. Alert and oriented 3. The patient understands the risks/benefits/side effects of the medication and is agreeable to continue taking them. PLAN: Slow progress. Increase risperidon to 2mg BID. Continue with current management as patient is improving. Continue to provide support and encouragement.
--- NOTE | 2016-07-18 22:39 | NUR ---
Pt is out in the community most of the elena shift, interacts with her peers appropriately, Vital signs are stable no issued noted during the day. Cooperative and compliant with the staff. Will continue to monitor the pt overnight.
[2016-07-19] VITALS (7 sets, daily range): BP systolic 118–145; BP diastolic 75–91
--- NOTE | 2016-07-19 04:35 | NUR ---
SLEPT, NO COMPLAINTS OFERED.
--- NOTE | 2016-07-19 08:54 | CP SOUTH PROGRESS NOTE PSYCH ---
Psych (Inpt) Progress Note Progress Note Progress Note: I discussed this patient's progress to date, current mental status, treatment process in the context of the treatment plan, and discharge planning with staff/ team in the daily morning inpatient team meeting. I also met with the patient myself in individual session. A total of 15 minutes was spent with the patient with more than 50% spent in counseling and/or coordination of care. SUBJECTIVE: "I'm too lonely. There is nothing to do but think of crazy things. " OBJECTIVE: Current Medications Sig/Gayatri Start time Last Medication Dose Route Stop Time Status Admin Benztropine Mesylate 1 MG BID 07/15 999 AC 07/19 PO 0753 Diphenhydramine HCl 50 MG .STK-MED ONE 07/18 2131 DC PO 07/18 2132 Diphenhydramine HCl 50 MG AT BEDTIME PRN 07/14 2300 AC 07/18 PO 2138 Divalproex Sodium 1,000 MG AT BEDTIME 07/19 2199 UNVr PO Divalproex Sodium 750 MG AT BEDTIME 07/16 2200 DC 07/18 PO 2138 Folic Acid 1 MG DAILY 07/16 1000 AC 07/19 PO 0753 Gabapentin 300 MG Q6-PRN PRN 07/15 1630 AC 07/18 PO 0558 Lorazepam 1 MG Q1 NEEDED PRN 07/14 2315 AC PO Lorazepam 2 MG Q1 NEEDED PRN 07/14 2315 AC PO Melatonin 5 MG AT BEDTIME 07/17 2200 AC 07/18 PO 2138 Multivitamins 1 TAB 0800 07/16 08 AC 07/19 PO 0753 Nicotine 2 MG Q2P PRN 07/15 1245 AC PO Risperidone 2 MG 799,07/18 0830 AC 07/19 PO 0753 Thiamine HCl 50 MG 0807/16 0800 AC 07/19 PO 0753 Laboratory Tests 07/19 600 Toxicology Valproic Acid (50 - 120 ug/mL) 53.7 Vital Signs Date Time Temp Pulse Resp B/P Pulse O2 O2 Flow FiO2 Ox Delivery Rate 07/19 812 97.4 88 145/79 07/19 750 97.4 88 145/79 07/18 2006 98.0 76 132/86 07/18 1612 76 145/79 07/18 1555 76 145/79 07/18 1305 86 141/84 Laboratory Tests 07/19 600 Toxicology Valproic Acid (50 - 120 ug/mL) 53.7 Vital Signs Date Time Temp Pulse Resp B/P Pulse O2 O2 Flow FiO2 Ox Delivery Rate 07/19 812 97.4 88 145/79 07/19 0751 97.4 88 145/79 07/18 2006 98.0 76 132/86 07/18 1612 76 145/79 07/18 1555 76 145/79 07/18 1305 86 141/84 07/18 1215 86 141 ASSESSMENT: Patient reports that she is feeling no improvement since her arrival , states that she feels that the medications she is taking has "made me worse." States that her mood is worse, that she's feeling worse about her family, and her racing thoughts continue as before. She states that she believes the Risperdal taken during the day is "making me dull and lifeless." This morning she appears to have some insight into her problems, and is hoping to resolve them to a combination of medicine and therapy. This is different from yesterday morning, when she was requesting to leave the hospital. She reports continuing depression and anxiety. Denies suicidal ideation, visual hallucinations, paranoid ideation. Although she is now denying suicidal thoughts, she continues to have thoughts of harming family members although she states that "I know I would never do it." She has no plan or intent to harm any family members, but says that she has obsessive thoughts about it. She denies auditory hallucinations, however states that she does listen to her own voice. It is not clear to me whether or not this is an auditory hallucination, or whether she is just hearing her own thoughts. Speech is well articulated, goal-directed, average in rate, volume and tone. Patient is calm, cooperative. Alert and oriented 3. The patient understands the risks/benefits/side effects of the medication and is agreeable to continue taking them. PLAN: Slow progress. Patient has agreed to increase Depakote ER to 1000mg at bedtime. Patient prefers to keep risperidone at the current doses, and see how she feels in the morning. Continue with current management as patient is improving. Continue to provide support and encouragement.
--- NOTE | 2016-07-19 12:56 | NUR ---
Pt is A&O X 3, compliant with medication and group therapies/ activities. Pt interacts with other peers and staff members, report good night sleep and appetite. Vital sign is stable and within the acceptable range. Mood and affcet is stable and appropriate, denies thought of self-harm and to someone else.
--- NOTE | 2016-07-19 16:43 | SOCIAL WORKER PROG NOTE PSYCH ---
Social Work Progress Note Progress Note Suzanne spent the day in groups. We talked about aftercare follow up. She signed releases for Mahsa Salas APRN and her therapist (Renetta Kee). She stated it was fine for Jung Chairez APRN or I to reach out to either. I shared that it looked like Dr. Arteaga didn't accept patient's on Hus[facility] D according to the website. Suzanne seemed ok with sticking with Ms. Salas knowing how difficult it is to find someone that takes Husky and she had only saw her 1x. Suzanne reports that she feels she was making some improvements today in using coping skills to help with the intrusive thoughts. We talked about whether or not she wanted a medication change and the importance of being up front with us about how she is feeling and not just telling us what she thinks we want to here so she leaves sooner. She stated that she is going to see how she does on the increased dose of Depakote tonight and give an update tomorrow.
--- NOTE | 2016-07-19 22:07 | NUR ---
Pt is out in the unit during the change of shift, mood is stable affect is in full range no issues noted during the day. Vital signs are stable appetite is good. Will continue to monitor the pt overnight.
[2016-07-20 07:55] VITALS: BP 122/72
[2016-07-20 08:00] VITALS: BP 122/72
[2016-07-20 11:59] VITALS: BP 121/81
[2016-07-20 12:11] VITALS: BP 121/81
--- NOTE | 2016-07-20 12:32 | SOCIAL WORKER PROG NOTE PSYCH ---
Social Work Progress Note Progress Note Called Daphne Harman therapist ([phone])to inform her of Suzanne's admission here and plans going forward. Daphne was not aware of the admission. Gave her a clinical update on what brought her in and continued presentation. She last saw Suzanne on 05/18 and stated Suzanne was doing well. She cancelled her appt. after that. She is open to seeing Suzanne 2x's a week if Suzanne feels that would be helpful. Daphne is in the [employer] office M,T,W and then works out of her [employer] office , Mon, Mon. I scheduled an appt. for her next week Wednesday 07/26 at 1pm. She would like her discharge information faxed to her at: [phone]. Talked to Suzanne, who stated she continues to feel oversedated on the medication. She reported that there would be a med change for her tonight and she is hoping that will be helpful. She was not able to recall the name of the medication. I talked to her about my conversation with Daphne Harman ROACH and informed her that she was available and willing to see her 2x's a week. Suzanne stated she would be interested in that. She feels comfortable with her and likes her. We talked about the importance of her feeling comfortable to share her thoughts and feelings. Suzanne also discussed wanting to look for work to keep busy and keep her mind off of things. 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 Talked about the benefits for self worth, self-esteem, accomplishment, and structure.
--- NOTE | 2016-07-20 12:35 | NUR ---
Pt is calm, cooperative, pleasant and compliant, no issues or complaints reported or observed, social and appropriate with peers and staff, during planning meeting today reported + mood/sleep and is working on staying positive, attended focus group as well, mood stable with full range affect.
--- NOTE | 2016-07-20 13:40 | CP SOUTH PROGRESS NOTE PSYCH ---
Psych (Inpt) Progress Note Progress Note Progress Note: I discussed this patient's progress to date, current mental status, treatment process in the context of the treatment plan, and discharge planning with staff/ team in the daily morning inpatient team meeting. I also met with the patient myself in individual session. A total of 25 minutes was spent with the patient with more than 50% spent in counseling and/or coordination of care. SUBJECTIVE: "I still have racing thoughts. I feel like I'm the most lifeless person. I've everything that is good, but I feel mean inside. I don't understand why. The medicine doesn't seem to help." OBJECTIVE: Current Medications Sig/Gayatri Start time Last Medication Dose Route Stop Time Status Admin Benztropine Mesylate 1 MG BID 07/15 999 AC 07/20 PO 075 Calcium Carbonate 500 MG Q2 HRS NEEDED PRN 07/19 1745 AC PO Diphenhydramine HCl 50 MG .STK-MED ONE 07/19 2113 DC PO 07/19 2114 Diphenhydramine HCl 50 MG AT BEDTIME PRN 07/14 2300 AC 07/19 PO 211 Divalproex Sodium 1,000 MG AT BEDTIME 07/19 2200 AC 07/19 PO 2117 Folic Acid 1 MG DAILY 07/16 1000 AC 07/20 PO 0759 Gabapentin 300 MG Q6-PRN PRN 07/15 1630 AC 07/19 PO 1848 Lorazepam 1 MG Q1 NEEDED PRN 07/14 2315 AC PO Lorazepam 2 MG Q1 NEEDED PRN 07/14 2315 AC PO Melatonin 5 MG AT BEDTIME 07/170 AC 07/19 PO 211 Multivitamins 1 TAB 07/16 08 AC 07/20 PO 0759 Nicotine 2 MG Q2P PRN 07/15 1245 AC PO Olanzapine 10 MG AT BEDTIME 07/20 2199 UNVr PO Risperidone 2 MG 799,07/18 0830 DC 07/20 PO 08 Thiamine HCl 50 MG 07/16 AC 07/20 PO 0759 Vital Signs Date Time Temp Pulse Resp B/P Pulse O2 O2 Flow FiO2 Ox Delivery Rate 07/20 1211 85 121/81 07/20 1159 85 121/81 07/20 799 97.0 90 122/72 07/20 075 97.0 90 122/72 07/19 2000 97.3 90 139/91 07/19 1636 79 122/88 07/19 1629 79 ASSESSMENT: Patient continues to complain of racing thoughts, "not feeling myself." She is requesting to try a different medication as current medications do not seem to be helpful. Yesterday Depakote ER was increased from 750mg to 1000 mg at bedtime. Patient also reported "I have too much time on my hands. I feel like I have nothing in my life, I'm in a rut. So I spent time thinking stupid things." Depression:0/10; Anxiety:0/10 (with 10 the worst.) Denies suicidal ideation, auditory hallucinations, visual hallucinations, paranoid ideation. Patient states and also believes that she will not kill herself, nor will she kill anyone else. Nevertheless she states that she continues to have ruminations about things which never happened, and thoughts of harming others although she has no plan or intent to do so. She reports sleeping well at night, stating that Benadryl helps. Her appetite is good. Speech is well articulated, goal-directed, average in rate, volume and tone. Cooperative. Alert and oriented 3. The patient understands the risks/benefits/side effects of the medication and is agreeable to continue taking them. PLAN: Continue Depakote ER 1000 mg at bedtime for mood stability. Discontinue risperidone, and start olanzapine for racing thoughts. Continue with current management as patient is improving. Continue to provide support and encouragement.
[2016-07-20 16:06] VITALS: BP 135/83
[2016-07-20 16:20] VITALS: BP 135/83
--- NOTE | 2016-07-20 22:09 | NUR ---
PT IS VISIBLE ON UNIT, MINIMAL INTERACTION WITH OTHERS BUT WILL SOCIAL ON OCCASSION. HAD VISIT FROM DAUGHTER THROUGHOUT THE EVENING. VERY COOPERATIVE AND COMPLIANT. NO COMPLAINTS OR SI REPORTED. PT HAS A STABLE MOOD AND FULL RANGE AFFECT.
[2016-07-21] VITALS (8 sets, daily range): BP systolic 123–139; BP diastolic 52–80
--- NOTE | 2016-07-21 06:50 | NUR ---
PATIENT WAS UP TO BATHROOM ONCE, OTHERWISE APPEARED TO SLEEP.
--- NOTE | 2016-07-21 12:18 | SOCIAL WORKER PROG NOTE PSYCH ---
Social Work Progress Note Progress Note Suzanne is anxious to go home. I informed her that the team is looking at discharge for tomorrow. Asked her about scheduling a meeting with her daughter Gabriela before she leaves. She was open for a meeting, but stated it may be difficult to schedule due to her work schedule. I called Gabriela who was busy working. She agreed to a meeting for 1pm tomorrow on her lunch break. She asked if her Mom was being discharged? I told her that it was looking like tomorrow possibly. She said she will call her Step-Father to see if he can pick her up later in the afternoon tomorrow. Suzanne was informed of the meeting tomorrow.
--- NOTE | 2016-07-21 13:59 | NUR ---
PT IS CALM AND COOPERATIVE TODAY. SHE IS VERBALIZING HER CONCERNS IN GROUPS AND ONE TO ONE. SHE REPORTS SOME RUMINATING THOUGHTS AT TIMES BUT ABLE TO DISTRACT HERSELF. SHE DENIES ANY SUICIDAL THOUGHTS AT THIS TIME
--- NOTE | 2016-07-21 14:30 | CP SOUTH PROGRESS NOTE PSYCH ---
Psych (Inpt) Progress Note Progress Note Progress Note: I discussed this patient's progress to date, current mental status, treatment process in the context of the treatment plan, and discharge planning with staff/ team in the daily morning inpatient team meeting. I also met with the patient myself in individual session. A total of 15 minutes was spent with the patient with more than 50% spent in counseling and/or coordination of care. SUBJECTIVE: "I'm doing pretty good. Maybe a slight bit better. I'm calm, the racing thoughts continue." OBJECTIVE: Current Medications Sig/Gayatri Start time Last Medication Dose Route Stop Time Status Admin Benztropine Mesylate 1 MG BID 07/15 1000 AC 07/21 PO 0905 Calcium Carbonate 500 MG Q2 HRS NEEDED PRN 07/19 1745 AC PO Diphenhydramine HCl 50 MG .STK-MED ONE 07/20 2119 DC PO 07/20 212 Diphenhydramine HCl 50 MG AT BEDTIME PRN 07/14 2300 AC 07/20 PO 212 Divalproex Sodium 1,000 MG AT BEDTIME 07/19 2200 AC 07/20 PO 2124 Folic Acid 1 MG DAILY 07/16 1000 AC 07/21 PO 0905 Gabapentin 300 MG Q6-PRN PRN 07/15 1630 AC 07/19 PO 1848 Lorazepam 1 MG Q1 NEEDED PRN 07/14 2315 AC PO Lorazepam 2 MG Q1 NEEDED PRN 07/14 2315 AC PO Melatonin 5 MG AT BEDTIME 07/17 2200 AC 07/20 PO 2124 Multivitamins 1 TAB 0800 07/16 0800 AC 07/21 PO 0905 Nicotine 2 MG Q2P PRN 07/15 1245 AC PO Olanzapine 15 MG AT BEDTIME 07/21 2199 UNVr PO Olanzapine 10 MG AT BEDTIME 07/20 220 DC 07/20 PO 2124 Thiamine HCl 50 MG 0800 07/16 0800 AC 07/21 PO 0905 Vital Signs Date Time Temp Pulse Resp B/P Pulse O2 O2 Flow FiO2 Ox Delivery Rate 07/21 1218 83 132/52 07/21 1213 83 132/52 07/21 0811 97.8 81 139/79 07/21 0752 97.8 81 139/79 07/20 1620 83 135/83 07/20 1606 83 135/83 ASSESSMENT: Patient reports tolerating olanzapine without complaint. Reports that she slept somewhat better than last night. Although she continues to complain of racing thoughts, she denies suicidal ideation, and claims that auditory hallucinations have stopped. We discussed discharge planning, and patient declines to attend [facility]. She states that she will follow up with her outpatient prescriber, Mahsa Salas APRN. I've placed calls to Mahsa Salas, and I am awaiting a call back. Patient also has plans to see her therapist Daphen Hammer twice a week. Depression:0/10; Anxiety:0/10 (with 10 the worst.) Denies suicidal ideation, homicidal ideation, auditory hallucinations, visual hallucinations, paranoid ideation. Patient states and also believes that she will not kill herself, and that she will not harm anyone else. She denies auditory hallucinations at this times, stating that both homicidal thoughts and auditory hallucinations have stopped. She reports sleeping well last night, better than the night before. States her appetite is good. Speech is well articulated, goal-directed, average in rate, volume and tone. The patient understands the risks/benefits/side effects of the medication and is agreeable to continue taking them. PLAN: Patient has agreed to increase olanzapine to 15 mg at bedtime for continued racing thoughts. Anticipate a family meeting tomorrow afternoon with her daughter, after which we anticipate her discharge from the hospital. She will follow-up with her outpatient prescriber, and outpatient therapist. Continue with current management as patient is improving. Continue to provide support and encouragement.
--- NOTE | 2016-07-21 21:51 | NUR ---
PT IS CALM, COOPERATIVE WITH STAFF AND PEERS, AND COMPLIANT WITH UNIT RULES. PT MOOD IS STABLE, AFFECT APPEARS EUTHYMIC TO FULL RANGE, COMMUNICATION IS NORMAL, APPETITE IS NORMAL. PT DENIES SI AT THIS TIME.
--- NOTE | 2016-07-22 04:32 | NUR ---
PT SLEPT WELL, NO ISSUES.
[2016-07-22 07:41] VITALS: BP 137/83
[2016-07-22 07:42] VITALS: BP 137/83
[2016-07-22 11:58] VITALS: BP 147/85
--- NOTE | 2016-07-22 12:09 | NUR ---
Discharge Assessment Patient denies SI/HI or paranoia. Patient reports racing thoughts have decreased with meds. Meds reviewed with stress on compliance. Addressed ways of managing SI if it should return. Discussed bipolar s/s; patient unsure if she is bipolar vs. depressed. Educational material given to patient.
[2016-07-22 12:11] VITALS: BP 147/75
[2016-07-22] MEDS ORDERED: OLANZAPINE15 M1 PO (12:26)
--- NOTE | 2016-07-22 13:42 | CP SOUTH PROGRESS NOTE PSYCH ---
Psych (Inpt) Progress Note Progress Note Progress Note: I discussed this patient's progress to date, current mental status, treatment process in the context of the treatment plan, and discharge planning with staff/ team in the daily morning inpatient team meeting. I also met with the patient myself in individual session. A total of 30 minutes was spent with the patient with more than 50% spent in counseling and/or coordination of care. SUBJECTIVE: " I need to get out of the house and do something." OBJECTIVE: Current Medications Sig/Gayatri Start time Last Medication Dose Route Stop Time Status Admin Benztropine Mesylate 1 MG BID 07/15 999 AC 07/22 PO 0742 Calcium Carbonate 500 MG Q2 HRS NEEDED PRN 07/19 1745 AC PO Diphenhydramine HCl 50 MG .STK-MED ONE 07/21 2116 DC PO 07/21 2117 Diphenhydramine HCl 50 MG AT BEDTIME PRN 07/14 2300 AC 07/21 PO 2122 Divalproex Sodium 1,000 MG AT BEDTIME 07/19 220 AC 07/21 PO 2119 Folic Acid 1 MG DAILY 07/16 1000 AC 07/22 PO 0743 Gabapentin 300 MG Q6-PRN PRN 07/15 1630 AC 07/19 PO 1848 Lorazepam 1 MG Q1 NEEDED PRN 07/14 2315 DC PO Lorazepam 2 MG Q1 NEEDED PRN 07/14 2315 DC PO Melatonin 5 MG AT BEDTIME 07/17 2200 AC 07/21 PO 2119 Multivitamins 1 TAB 0800 07/16 0800 AC 07/22 PO 0742 Nicotine 2 MG Q2P PRN 07/15 1245 AC PO Olanzapine 15 MG AT BEDTIME 07/21 2199 AC 07/21 PO 2119 Olanzapine 10 MG AT BEDTIME 07/20 220 DC 07/20 PO 2124 Thiamine HCl 50 MG 0800 07/16 0800 AC 07/22 PO 0742 Laboratory Tests 07/22 0624 Toxicology Valproic Acid (50 - 120 ug/mL) 67.1 Vital Signs Date Time Temp Pulse Resp B/P Pulse O2 O2 Flow FiO2 Ox Delivery Rate 07/22 1211 83 147/75 07/22 1158 83 147/85 07/22 0742 97.4 82 137/83 07/22 0741 97.4 82 137/83 07/21 1999 98.4 82 123/79 07/21 1953 98.4 82 123/79 07/21 1626 86 130/80 07/211 86 130/80 ASSESSMENT: Today I met the patient in a family meeting along with her daughter Caren and social work professor Gloria Royal. The patient and her daughter verbalized understanding of and agreement with discharge instructions, including medication administration. They both agreed that the patient would engage in therapy with her outpatient therapist, and come to the [facility] outpatient clinic for medication management. Patient states she feels safe and ready for discharge, and her daughter agrees. States she's tolerating her medications well, to good effect. Depression:0/10; Anxiety:0/10 (with 10 the worst.) Denies suicidal ideation, homicidal ideation, auditory hallucinations, visual hallucinations, paranoid ideation. Patient states and also believes that she will not kill herself, nor will she harm anyone else. She reports that her sleep was only "so-so." Her energy and appetite are fine. Speech is well articulated, goal-directed, average in rate, volume and tone. Alert and oriented to person, place, time and situation. Calm, and cooperative. The patient understands the risks/benefits/side effects of the medication and is agreeable to continue taking them. PLAN: Discharge to home today. Follow up at [facility] outpatient, and with private outpatient therapist. Continue with current management as patient is improving. Continue to provide support and encouragement.
--- NOTE | 2016-07-22 13:46 | DISCHARGE SUMMARY REPORT-PSYCH ---
Visit Information Visit Dates/Diagnosis' Admission Date: 07/14/16 Discharge Date: 07/22/16 Reason for Admission: Patient self presented to the emergency department with her daughter Caren, reports having suicidal and homicidal thoughts. Patient was admitted to [facility] in August and November 2015, and then to [facility] from the [facility] in February 2016. Psy Discharge Primary Diag: Major Depressive d/o, recurrent, severe, with psychotic features. Psy Discharge Secondary Diag: Rule out: Mood d/o; Generalized Anxiety d/o; Panic d/o; osteoarthritis. Hospital Course Significant Lab Findings: Lab Valproic Acid 67.1 ug/mL 07/22/16 0624 Course Complications: None Consultations: Patient was seen for admission history and physical by Dr. Vidal. Please refer to his note for additional information. Allergies: Coded Allergies: NO KNOWN ALLERGIES (09/14/15) Hospital Course/TX Response: The patient was monitored on the unit for safety, depression, mood stability, suicidal and homicidal ideation. She participated in multi-modal treatments on the unit. Depakote was increased to 1000mg daily. Risperdal, which she had been taking on an outpatient basis was discontinued, as it no longer proved efficacious. Olanzapine was started for "racing" thoughts which included intermittent suicidal thoughts, and thoughts to harm others. These medications were well tolerated, to good effect. Today, the day of discharge, Today I met the patient in a family meeting along with her daughter Caren and social work therapist Gloria Royal. The patient and her daughter verbalized understanding of and agreement with discharge instructions, including medication administration. They both agreed that the patient would engage in therapy with her outpatient therapist, and come to the [facility] outpatient clinic for medication management. Patient states she feels safe and ready for discharge, and her daughter agrees. States she's tolerating her medications well, to good effect. The patient was offered treatment at [facility], where she has attended in the past. She refused, stating that she would see her private outpatient therapist twice a week, and medication management at [facility]. Depression:0/10; Anxiety:0/10 (with 10 the worst.) Denies suicidal ideation, homicidal ideation, auditory hallucinations, visual hallucinations, paranoid ideation. Patient states and also believes that she will not kill herself, nor will she harm anyone else. She reports that her sleep was only "so-so." Her energy and appetite are fine. Speech is well articulated, goal-directed, average in rate, volume and tone. Alert and oriented to person, place, time and situation. Calm, and cooperative. The patient understands the risks/benefits/side effects of the medication and is agreeable to continue taking them. The patient reports tolerating her medications well, without complaint. States she feels safe and ready for discharge. Discharge HBIPS - Tobacco Use Treatment Offered Post DC Medications Offered: Script Given-See Med List Post DC Tobacco Treatment Plan: [facility] Appt Date: 08/03/16 Program Appt Time: 1600 - EtOH/Drug Use D/O Treatment Offered Post DC Medications Offered: Ref Med EtOH/Drug Use D/O Post DC EtOH/SubAbuse TX Plan: Refused Post DC Tx [facility] (will attend [facility]) Metabolic Screening - Screen if on a Neuroleptic Medication - Metabolic screening should include: - Blood Pressure, BMI, Glucose or Hgb A1c, & a - Lipid profile from within the past 365 days. Metabolic Screening () Not Applicable, patient not on a neuroleptic. OR ([x]) Patient on a neuroleptic(s) . Enter below results for Glucose or Hemoglobin A1C, and lipid panel if obtained during the last 365 days. BMI: 28.400 Blood Pressure: 147/75 Laboratory Results (If applicable): Lab Cholesterol 192 MG/DL 11/05/15 0809 Glucose 95 mg/dL 07/14/16 1330 HDL Cholesterol 52 mg/dL 11/05/15 0809 Hemoglobin A1c 5.6 % 08/31/15 1413 LDL Cholesterol, Calc 125 mg/dL 11/05/15 0809 Triglycerides 79 mg/dL 11/05/15 0809 Discharge Instructions General Discharge Information Discharge Medications: Discharge Medications- (Dose, route, freq, indication): HOME MEDICATION LIST START taking these NEW Home Medications: Nicotine Dose: ORAL, EVERY 2 HOURS Qty: 14 Called in to (Nicorelief) 2 MG 2 Milligram NEEDED as needed for Refills: 0 Pharm 1 GUM smoking cessation Last Taken:not during this hospitalization Time: Divalproex Sodium Dose: ORAL, AT BEDTIME for Qty: 28 Called in to (Divalproex Sodium 1,000 Milligram MOOD STABILITY Refills: 0 Pharm 1 ER) 500 MG Last Taken:07/22/16 TAB.ER.24H Time:0800 Olanzapine Dose: ORAL, AT BEDTIME for Qty: 14 Called in to (Olanzapine) 15 MG 15 Milligram CLEAR THOUGHTS Refills: 0 Pharm 1 TABLET Multivitamin (One Dose: ORAL, DAILY @8 AM for Qty: 14 Daily Multivitamin) 1 Tablet SUPPLEMENT Refills: 0 1 EACH TABLET STOP taking these DISCONTINUED Home Medications: Risperidone (Risperidone) 1 MG Dose: ORAL, TWICE DAILY for UNKNOWN TABLET 1 Tablet Reason Stopped: Changed to different med Bupropion HCl (Bupropion XL) Dose: ORAL, TAKE AT BEDTIME for UNKNOWN 150 MG TAB.ER.24H 1 Tablet Reason Stopped: Changed to different med Fluoxetine HCl (Fluoxetine Dose: ORAL, DAILY for UNKNOWN HCl) 20 MG CAPSULE 1 Capsule Reason Stopped: Changed to different med Benztropine Mesylate Dose: ORAL, TWICE DAILY for MOOD (Benztropine Mesylate) 1 MG 1 Tablet STABILITY TABLET Reason Stopped: Changed to different med Risperidone (Risperidone) 0.5 Dose: ORAL, TWICE DAILY for MOOD MG TABLET 1 Tablet STABILITY Reason Stopped: Changed to different med 1: [id number], [address] [place] [address] [phone] Your Preferred Pharmacy [facility] [phone] [place] [address] Multiple Neuroleptics: (x) Not Applicable OR Document below three failed attempts at monotherapy, or a plan to taper to monotherapy, or augmentation of Clozapine. () Patient's Diet: Regular Patient's Activity: No restrictions DC Disposition: Patient is returning to her home, where she lives with her . Recommendations: Follow up for medication management at [facility], and twice weekly therapy with your outpatient therapist. Take medications as directed. Maintain sobriety. Referred To: Post Discharge Referrals Provider Referral Referred To: [[facility]] Notes: Intake appointment with Ilia Mckeon, DEXTER 07/29/16 at 1:15pm [employer] appointment with Ilia Rodriguez CT 08/01/2016 at 9am Provider Referral Referred To: [[facility]] Notes: Appointment on 07/26/2015 at 1pm. Copies To: ADELINE JAY APRN
[2016-07-22] MEDS ORDERED: ONE DAILY MULT1 EAC2 PO (14:03)
[2016-07-22] MEDS ORDERED: DIVALPROEX SOD500 M3 PO (14:15)
[2016-07-22] MEDS ORDERED: NICORELIEF2 MG PO (14:18)
--- NOTE | 2016-07-22 14:45 | SOCIAL WORKER PROG NOTE PSYCH ---
Social Work Progress Note Progress Note Mahsa Salas APRN never returned Jung Chairez's call, so we set up appt.'s for Suzanne in the [facility] outpatient program. Intake will be on 07/29 at 1:15pm with Pricila Fink LCSW and Med Review appt. with Niru Mclaughlin APRN on 08/01 at 9am. Suzanne's daughter Gabriela came and met for a family meeting. Jung Chairez APRN was also in attendance. Jung reviewed Suzanne's medications. We discussed the follow up appt.'s that were scheduled and talked about her continuing to see her therapist Daphne rhodes's a week. Gabriela didn't seem to have any concerns and agreed that she seemed much less anxious than when she came in. We talked about the need for her to have some structured work/ volunteer activity to look into to help with her need for socialization and keeping herself looking forward to things on a regular basis. 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 Suzanne's is coming to pick her up at 2:30 today.
== END 2016-07-22 14:46 | DRG 751 ==
LOC: ERH 12:47 → ERHI 19:36 → ENPENDDIS 19:36 → CP SOUTH 19:36
PROVIDERS: Emergency Medicine; ADMIT Psychiatry & Neurology Psychiatry
DX: F33.3 Major depressive disorder, recurrent, severe with psychotic symptoms (principal); M19.90 Unspecified osteoarthritis, unspecified site; F39 Unspecified mood [affective] disorder; F41.1 Generalized anxiety disorder; F41.0 Panic disorder [episodic paroxysmal anxiety]
CPT/HCPCS: 36415; 80307; G0480; J3490

== ENCOUNTER 2018-03-27 13:43 | Inpatient (IN) | payer OTHER ==
[~2018-03-27] VITALS: Ht 167.6 cm; Wt 85.5 kg
[~2018-03-27 13:43] MED LIST changes: +ATIVAN0.5 M1 PO; +BENZTROPINE MESY1 M1 PO; +CITALOPRAM HBR20 MG PO; +DEPAKOTE ER500 M1 PO; +DIVALPROEX SOD250 M3 PO; +DIVALPROEX SOD500 M2 PO; +DIVALPROEX SOD500 M3 PO; +LATUDA60 M1 PO; +NICORELIEF2 MG PO; +OLANZAPINE10 M1 PO; +OLANZAPINE15 M1 PO; +OLANZAPINE5 M2 PO; +ONE DAILY MULT1 EAC2 PO; +PROPRANOLOL HCL10 M1 PO; +RISPERIDONE0.5 M1 PO; +ROZEREM8 M1 PO; +SERTRALINE HCL50 MG PO; +TOPIRAMATE50 M1 PO
[2018-03-27 14:09] LABS: ABSOLUTE BASOPHIL COUNT 0 /CUMM (0.0-0.2); ABSOLUTE EOSINOPHIL COUNT 0.1 /CUMM (0.0-0.7); ABSOLUTE GRANULOCYTE CT 6.3 /CUMM (1.4-6.5); ABSOLUTE LYMPH COUNT 1.2 /CUMM (1.2-3.4); ABSOLUTE MONOCYTE COUNT 0.4 /CUMM (0.10-0.60); BASOPHIL % 0.4 % (0.0-2.0); EOSINOPHIL % 1.8 % (0-5); GRANULOCYTE % 78.5 % (42.2-75.2); HEMATOCRIT 40.6 % (37-47); MEAN CORPUSCULAR HGB 32.3 PG (27.0-31.0); MEAN CORPUSCULAR HGB CONC 34.6 G/DL (33.0-37.0); MEAN CORPUSCULAR VOLUME 93.3 FL (81.0-99.0); PLATELET COUNT 281 /CUMM (130-400); RBC DISTRIBUTION WIDTH 12.6 % (11.5-14.5); RED BLOOD CELL CT 4.35 /CUMM (4.20-5.40); WHITE BLOOD CELL COUNT 8.1 /CUMM (4.8-10.8)
[2018-03-27] MEDS ORDERED: OLANZAPINE10 M1 PO (14:29)
[2018-03-27] MEDS ORDERED: OLANZAPINE15 M1 PO (14:29)
[2018-03-27] MEDS ORDERED: LITHIUM CARBON450 M1 PO (14:31)
--- NOTE | 2018-03-27 15:25 | ED PSYCHIATRIC COMPLAINT ---
See Addendum History of Present Illness General Chief Complaint: Psychiatric Related Complaint Stated Complaint: REQUESTING PSYCH EVAL +HI "BUT PT DOESNT KNOW WHY" Source: patient, family Exam Limitations: no limitations Vital Signs & Intake/Output Vital Signs & Intake/Output Vital Signs Date Time Temp Pulse Resp B/P B/P Pulse O2 O2 Flow FiO2 Mean Ox Delivery Rate 03/29 1417 98.2 67 16 128/78 96 Room Air 03/29 1033 140/92 03/29 0800 97.9 69 18 140/92 03/29 0654 97.9 69 18 140/92 96 03/28 2308 140/90 03/28 2219 98.3 73 20 140/90 95 Room Air 03/28 1944 98.6 75 18 138/88 96 Room Air ED Intake and Output 03/29 0000 03/28 1200 Intake Total 520 Output Total Balance 520 Intake, IV 400 Intake, Oral 120 Patient 189 lb 170 lb Weight Weight Bed scale Reported by Patient Measurement Method Allergies Coded Allergies: NO KNOWN ALLERGIES (09/14/15) Triage Note: 57 YO FEMALE TO TRIAGE FOR EVAL OF +HI THOUGHTS. PT STATES SHE TOOK (3) 300MG LITHIUM TABS AND (3) 15MG ZYPREXA THIS AM IN ATTEMPT TO "STOP THE VOICES IN MY HEAD" PT ALERT AND ORIENTED IN TRIAGE. PT SLOW TO RESPOND TO QUESTIONS. PT HERE WITH DAUGHTER. 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 Triage Nurses Notes Reviewed? yes Onset: Abrupt Duration: day(s): (2-3), constant, continues in ED Timing: recent history Severity: mild, moderate Associated Symptoms: anxiety, ingestion, suicidal ideation LMP (ages 10-50): post menopausal : No Patient currently breastfeeds: No HPI: 57-year-old female past medical history of bipolar disorder, depression, alcohol dependence presents for evaluation of hearing voices in her head and homicidal ideation. Patient reports she has been having thoughts of wanting to hurt other people. She denies a particular person that she think she wants to hurt. She states that she has been perseverating on the same thought over and over about hurting someone. She states she has been taking her psychiatric medications lithium and Zyprexa without improvement. She states she tried taking 3 300 milligrams lithium tablets and 3 Zyprexa tablets today in an attempt to feel better but it did not work. She denies suicidal ideation. She reports that she usually does drink daily but has not drank in 2 days she denies a history of withdrawal seizures. No illicit drug use. No visual hallucinations. She has been hospitalized for psychiatric issues multiple times in the past. (Yusef Mobley) Reconcile Medications [place] Carbonate ([place] Carbonate ER) 450 MG TABLET.ER 1 TAB PO BID MENTAL HEALTH (Reported) Olanzapine 10 MG TABLET 1 TAB PO DAILY MENTAL HEALTH (Reported) Olanzapine 15 MG TABLET 1 TAB PO QPM MENTAL HEALTH (Reported) Propranolol HCl 10 MG TABLET 10 MG PO BID restlessness/anxiety Take 1 tab po BID Ramelteon (Rozerem) 8 MG TABLET 8 MG PO AT BEDTIME insomnia Take 1 tab po QHS. (Angelita ALEXANDRE,Abdoul Asher) Past History Travel History Traveled to [place] past 21 day No Medical History Any Pertinent Medical History? 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 No (Yusef Mobley) Review of Systems Review of Systems Constitutional: Reports: no symptoms. EENTM: Reports: no symptoms. Respiratory: Reports: no symptoms. Cardiovascular: Reports: no symptoms. GI: Reports: no symptoms. Genitourinary: Reports: no symptoms. Musculoskeletal: Reports: no symptoms. Skin: Reports: no symptoms. Neurological/Psychological: Reports: anxiety, depressed. Hematologic/Endocrine: Reports: no symptoms. Immunologic/Allergic: Reports: no symptoms. All Other Systems: Reviewed and Negative (Yusef Mobley) Physical Exam Physical Exam General Appearance: well developed/nourished, no apparent distress, alert, awake Head: atraumatic, normal appearance Eyes: Bilateral: normal appearance, PERRL, EOMI. Ears, Nose, Throat: hearing grossly normal Neck: normal inspection, supple, full range of motion Respiratory: normal breath sounds, chest non-tender, no respiratory distress, lungs clear Cardiovascular: regular rate/rhythm, normal peripheral pulses Gastrointestinal: soft, non-tender Extremities: normal range of motion Neurological/Psychiatric: no motor/sensory deficits, awake, alert Appearance/Memory/Insight: disheveled, impaired insight Behavoir/Eye Contact/Speech: cooperative, decreased rate of speech Thoughts/Hallucinations: auditory hallucinations, delusions, obsessive Skin: intact, normal color, warm/dry SAD PERSONS Done? patient not suicidal (Yusef Mobley) Progress Differential Diagnosis: dementia, drug intoxication, drug overdose, drug withdrawal, electrolyte abnormality, encephalitis Plan of Care: Orders Procedure Date/time Status MISSING MEDICATION FORM 03/29 UNK Active Current Medications Sig/Gayatri Start time Last Medication Dose Stop Time Status Admin Olanzapine 15 MG QPM 03/28 2100 AC 03/28 (Zyprexa) 2308 Ramelteon 8 MG AT BEDTIME 03/28 2100 AC 03/28 (Rozerem) 2310 Olanzapine 10 MG DAILY 03/28 1230 AC 03/29 (Zyprexa) 1131 Propranolol HCl 10 MG BID 03/28 1230 AC 03/29 (Inderal 10 MG 1033 Tablet.) Heparin Sodium 5,000 UNIT Q8 03/28 0600 AC (Porcine) Acetaminophen 650 MG Q6P PRN 03/27 2215 AC 03/29 (Tylenol) 1555 Acetaminophen 1,000 MG Q6P PRN 03/27 2215 AC (Ofirmev) Nicotine 7 MG DAILY PRN 03/27 2215 AC (Nicotine Cq) Polyethylene Glycol 17 GM AT BEDTIME PRN 03/27 2215 AC (Miralax) Senna/Docusate Sodium 1 TAB AT BEDTIME PRN 03/27 2215 AC (Senokot S) Patient is here for evaluation of hearing voices telling her to harm people. She denies a specific person that she wants to harm. She states she has no suicidal ideation. She also reports taking 900 mg of lithium and 3 Zyprexa tablets a day which is greater than her usual dose and attempt to feel better this did not help. She denies alcohol or drug use today. No other medications or medical issues. Patient will be seen by crisis labs ordered. Lab work is unremarkable lithium level is still pending. Patient signed out to Dr. Goldstein pending lithium level and crisis Hand-Off Endorsed To: Abdoul Goldstein MD Endorsed Time: 1600 Pending: consult (crisis) (Yusef Mobley) Initial ED EKG: NSR, rate (87), PATIENT'S ekg IS DIFFICULT TO INTERPRET GIVEN WAVY BASELINE AND ARTIFACT. Comments: 03/27/2018 4:04:06 PM patient signed out to me at shift change lead. Repeat lithium levels pending. (Angelita ALEXANDRE,Abdoul Asher) Departure Departure Disposition: STILL A PATIENT Condition: Stable Clinical Impression Primary Impression: Auditory hallucination Referrals: Jeffrey Vidal MD (PCP/Family) Departure Forms: Customer Survey General Discharge Information (Yusef Mobley) Admission Note Spoke With: Jeffrey Vidal MD Documentation of Exam: Documentation of any treatments & extenuating circumstances including Concerns Regarding Discharge (functional status, medication knowledge or non-compliance, living conditions, etc.) that warrant an admission rather than observation: Patient has evidence of supratherapeutic lithium level without acute signs of toxicity. It is unclear when the patient took her overdose given the difficulties with history taking. In addition the patient's lithium level is increasing. Patient requires hospitalization for monitoring of her lithium levels and any indication of clinical toxicity. Patient to be given IV fluids. She should have a psychiatric consultation and reevaluation of current medications in the light of her elevated lithium level. If the patient's lithium level continues to increase or she begins manifesting signs of lithium toxicity, dialysis should be considered. I feel this patient will require a multiple day hospitalization. (Angelita ALEXANDRE,Abdoul Asher)
[2018-03-27 15:44] LABS: LITHIUM 1.6 mmol/L (0.6-1.2)
--- NOTE | 2018-03-27 20:22 | History & Physical ---
Shayan Rodriguez [birth year]182021: General Information and HPI MD Statement: I have seen and personally examined LAURA GRACE and documented this H&P. The patient is a 57 year old F who presented with a patient stated chief complaint of [took extra pills to get better]. Source of Information: patient Exam Limitations: clinical condition History of Present Illness: Patient is a 57-year-old female with an extensive psychiatric history, including bipolar disorder, anxiety disorder, OCD, panic disorder, presenting with homicidal ideation and lithium toxicity. The patient states that she "took a couple extra pills to get better" earlier today. She took 2 extra tablets of lithium as well as an extra tablet of olanzapine. She says that she did this because she had racing thoughts about hurting her entire family, although she admits her family has been very good to her. She denies hearing voices, visual hallucinations, suicidal ideation, chest pain, lightheadedness, dizziness, nausea or vomiting. The patient lives at home with her family, is independent in activities of daily living and recently increased her cigarette usenow smokes half a pack a day for the previous year, prior to that she was an occasional cigarette smoker. She also consumes "a couple" glasses of wine every few days, most recently this past Monday. Denies illicit drug use. Allergies/Medications Allergies: Coded Allergies: NO KNOWN ALLERGIES (09/14/15) Home Med list Divalproex Sodium 500 MG TABLET.DR 500 MG PO BID ANXIETY, ocd PLEASE TAKE ONE TAB PO BID [place] Carbonate ([place] Carbonate ER) 450 MG TABLET.ER 1 TAB PO BID MENTAL HEALTH (Reported) Olanzapine 10 MG TABLET 1 TAB PO DAILY MENTAL HEALTH (Reported) Olanzapine 15 MG TABLET 1 TAB PO QPM MENTAL HEALTH (Reported) Olanzapine 5 MG TABLET 5 MG PO QAM OCD please take one tab PO daily in the morning Propranolol HCl 10 MG TABLET 10 MG PO BID restlessness/anxiety Take 1 tab po BID Ramelteon (Rozerem) 8 MG TABLET 8 MG PO AT BEDTIME insomnia Take 1 tab po QHS. 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 spouse Services at Home: None Primary Language: Croatian Functional Ability ADLs Independent: dressing, eating, toileting, bathing. Ambulation: independent IADLs Independent: shopping, housework, finances, food prep, telephone, transportation , medication admin. Review of Systems Review of Systems Constitutional: Denies: chills, fever, weakness. Cardiovascular: Denies: chest pain, edema, palpitations. Respiratory: Denies: cough, short of breath, wheezing. GI: Denies: abdominal pain, bloating, diarrhea, nausea, vomiting. Neurological/Psychological: Reports: anxiety, emotional problems, paresthesia, tingling. Exam & Diagnostic Data Last 24 Hrs of Vital Signs/I&O Vital Signs Date Time Temp Pulse Resp B/P B/P Pulse O2 O2 Flow FiO2 Mean Ox Delivery Rate 03/28 0012 98.3 85 18 111/55 94 Room Air 03/27 2223 97.6 83 16 145/71 97 Room Air 03/27 2042 98.4 81 18 129/74 95 03/27 1847 98.5 89 20 130/64 95 Room Air 03/27 1527 98.4 73 20 124/70 94 Room Air 03/27 1350 98.2 76 18 118/79 98 Room Air Intake & Output 03/28 0800 03/28 0000 03/27 1600 Intake Total Output Total Balance Patient 77.111 kg Weight Weight Reported by Patient Measurement Method Physical Exam General Appearance Alert, Oriented X3, Cooperative, No Acute Distress HEENT Atraumatic, PERRLA, EOMI, Mucous Membr. moist/pink Cardiovascular Regular Rate, Normal S1, Normal S2, No Murmurs Lungs Clear to Auscultation, Normal Air Movement Abdomen Normal Bowel Sounds, Soft, No Tenderness Neurological Normal Speech, Strength at 5/5 X4 Ext, Sensation Intact Extremities No Clubbing, No Cyanosis, No Edema Last 24 Hrs of Labs/Miguel: Laboratory Tests 03/27/18 2148: Anion Gap 2 L, Estimated GFR > 60, BUN/Creatinine Ratio 12.0 03/27/18 2000: [place] 1.3 H 03/27/18 1650: [place] 2.0 *H 03/27/18 1413: Urine Opiates Screen < 100, Methadone Screen < 40, Barbiturate Screen < 60, Ur Phencyclidine Scrn < 6.00, Amphetamines Screen < 100, U Benzodiazepines Scrn < 85, Urine Cocaine Screen < 50, Urine Cannabis Screen < 5.00, Urine Color YEL, Urine Clarity CLEAR, Urine pH 7.0, Ur Specific [place] 1.010, Urine Protein NEG, Urine Ketones NEG, Urine Nitrite NEG, Urine Bilirubin NEG, Urine Urobilinogen 0.2, Ur Leukocyte Esterase NEG, Ur Microscopic SEDIMENT EXAMINED, Urine RBC RARE , Urine WBC RARE, Ur Epithelial Cells OCCAS, Urine Hemoglobin TRACE-INTACT, Urine Glucose NEG 03/27/18 1401: Anion Gap 10, Estimated GFR > 60, BUN/Creatinine Ratio 20.0, Glucose 134 H, Calcium 9.8, Total Bilirubin 0.6, AST 19, ALT 42, Alkaline Phosphatase 69, Total Protein 6.3, Albumin 4.2, Globulin 2.1, Albumin/Globulin Ratio 2.0, CBC w Diff NO MAN DIFF REQ, RBC 4.35, MCV 93.3, MCH 32.3 H, MCHC 34.6, RDW 12.6, MPV 8.0, Gran % 78.5 H, Lymphocytes % 14.7 L, Monocytes % 4.6, Eosinophils % 1.8, Basophils % 0.4, Absolute Granulocytes 6.3, Absolute Lymphocytes 1.2, Absolute Monocytes 0.4, Absolute Eosinophils 0.1, Absolute Basophils 0, Salicylates < 1.0 , Acetaminophen < 10.0 L, [place] 1.6 *H, Serum Alcohol < 10.0 Assessment/Plan Assessment: 57-year-old female with extensive psychiatric history presenting with homicidal ideation and lithium toxicity. Problems: 1. [place] toxicity 2. Homicidal ideation Plan: Full code As Ranked By This Provider Problem List: 1. Homicidal ideation 2. Hyponatremia 3. Intoxication Core Measures/Misc (03/26) Acute Coronary Syndrome ACS Diagnosis: No Congestive Heart Failure Congestive Heart Failure Diagnosis No Cerebrovascular Accident CVA/TIA Diagnosis: No VTE (View Protocol) VTE Risk Factors Age>40 No Mechanical VTE Prophylaxis d/t N/A MechProphylax Ordered No VTE Pharm Prophylaxis d/t NA PharmProphylax ordered Sepsis (View protocol) Sepsis Present: No If YES complete Sepsis Event Note If YES complete Sepsis Event Note Saurabh Shearer MD 03/27/18 2136: Core Measures/Misc (03/26) Sepsis (View protocol) If YES complete Sepsis Event Note If YES complete Sepsis Event Note Resident Review Statement Resident Statement: examined this patient, discussed with internet network specialist, agreed with internet network specialist, amended to note Other Findings: Patient is a 57-year-old female with past medical history of bipolar disorder, generalized anxiety disorder, panic disorder, obsessive-compulsive disorder, with previous admissions for polydipsia presenting this admission with chief complaint of hearing voices and homicidal ideations. Patient reports that over the past few days he has been having uncomfortable thoughts of hurting people in general including her family. Reports that she feels like there are her own thoughts and not voices. Patient reports that she has no reason to be having these thoughts and that her family has been very good to her. States that for this reason she has been taking more lithium. States she has been taking 3-4 extra tablets of lithium as well as additional tablet of olanzapine. States that today she took an extra 3 tablets of lithium 450 mg extended release and 3 tablets of olanzapine 15 mg. Reports headache and slurred speech. Patient reports racing thoughts and decreased sleep. Denies any nausea/vomiting, abdominal pain, chest pain, palpitations, lightheadedness, dizziness, fevers/chills, shortness of breath, blurry/double vision. Patient denies any suicidal ideations. Patient reports feeling guilty about her previous affair she had actually 10 years ago. Reports that she has received counseling with her since then and doesn't know why she still feels this way. Past medical history: As above and osteoarthritis, restless leg syndrome Past surgical history Social history: Lives with her family, smokes 1.5 packs per day for the past few years, drinks a few glasses of wine every other day- reports last drink was on Monday Allergies: Denies any allergies to medications Medication: [place] 450 mg twice a day, olanzapine 10 mg in the morning and 50 mg at night, Propranalol 10 mg twice a day, Rozerem 8 mg by mouth at that time On admission: Vitals: Temperature 98.5, heart rate 76-89, respiration rate 18-20, blood pressure 129/74, saturating at 94-90% on room air Physical exam as above Labs: Significant for sodium of 132, potassium of 3.5, creatinine of 0.5, lithium level of 1.6 which went up to 2.0 and later came down to 1.3. Repeat EKG was done showing normal sinus rhythm with heart rate of 73, VA interval of 188, QTC 454, T-wave flattening in 3, aVF and aVL Patient is a 57-year-old female with past medical history significant for multiple psychiatric comorbidities presenting this admission with lithium toxicity. Patient's lithium level initially went up to 2.0 and has now been trending down. Her electrolytes have been stable and EKG shows some T-wave flattening. Plan: Admitted to general med Monitor lithium every 4 hours Repeat EKG and troponin Monitor electrolytes and replete as needed Per poison control we'll continue IV fluids Smoking cessation and nicotine patch Home medications held Psychiatry consult placed Social work consult placed No signs of alcohol withdrawal however we will monitor CIWA DVT prophylaxis: Alps, heparin subcutaneous Diet: Regular diet Code: Full code
[2018-03-28 06:41] LABS: LITHIUM 1.1 mmol/L (0.6-1.2)
--- NOTE | 2018-03-28 07:41 | PN- Housestaff ---
Subjective Follow-up For: Suicidal ideation [place] toxicity Subjective: Patient seen and examined at bedside. She was oriented in time place person. She denies hallucination, delusion, suicidal ideation, self or harming others, fever, chill, chest pain, abdominal pain, diarrhea, constipation, burning micturition. Review of Systems Constitutional: Reports: see HPI. Objective Last 24 Hrs of Vital Signs/I&O Vital Signs Date Time Temp Pulse Resp B/P B/P Pulse O2 O2 Flow FiO2 Mean Ox Delivery Rate 03/28 1844 98.9 72 18 148/81 94 Room Air 03/28 1608 98.7 87 18 116/65 95 Room Air 03/28 1249 98.4 96 18 131/85 03/28 1153 98.4 96 18 131/85 03/28 1150 98.4 96 18 131/85 97 03/28 0924 98.6 76 18 126/84 98 Room Air 03/28 0613 97.1 75 20 111/55 95 Room Air 03/28 0012 98.3 85 18 111/55 94 Room Air 03/27 2223 97.6 83 16 145/71 97 Room Air 03/27 2042 98.4 81 18 129/74 95 Intake & Output 03/28 1600 03/28 0800 03/28 0000 Intake Total Output Total Balance Patient 170 lb Weight Weight Reported by Patient Measurement Method Physical Exam General Appearance: Alert, Oriented X3, Cooperative, No Acute Distress Cardiovascular: Normal S1, Normal S2 Lungs: Clear to Auscultation, Normal Air Movement Abdomen: Normal Bowel Sounds, Soft Extremities: No Clubbing, No Cyanosis, No Edema, Normal Pulses Assessment/Plan Assessment: 57-year-old female with with past medical history bipolar disorder, depression, alcohol dependence presented to emergency department for further evaluation of suicidal thoughts and lithium toxicity. At the time of presentation emergency department her vitals and labs are given below Vitals: Temperature was 98, heart rate 85, respiratory rate 18, blood pressure 1 1/55, pulse oximetry 94% Labs: WBC 6.1, hemoglobin/hematocrit 12.3/36.3, MCV 93.9 [place] level was 1.6 Sodium 138, potassium 3.5, GFR more than 60, creatinine point Problems list: * [place] toxicity * Suicidal ideation [place] toxicity: * According to the patient she said that she had some spinal suicidal and homicidal thoughts * She did not had any plan for those thoughts * Her thoughts was not specific for any person * She took the lithium and 1 olanzapine tablet * Today lithium level was 1.1 * She denies any symptom and sign of lithium toxicity * Psychiatric recommendation appreciated she ordered to monitor lithium level Suicidal ideas: * Patient has suicidal ideation at home * She hated homicidal ideation as well * She had no specific plan for suicidal or homicidal * She had no specific homicidal thoughts per any specific person * Currently she having no suicidal or homicidal ideation and she having no delusion or hallucination * She is determined for [facility] IOP following * Will follow psychiatry recommendation and manage accordingly DVT/GI prophylaxis Full code Problem List: 1. Depression 2. Anxiety 3. Suicide ideation 4. Auditory hallucination 5. Intoxication 6. Homicidal ideation 7. Bipolar disorder Pain Ratin Pain Location: No pain Pain Goal: Remain pain free Pain Plan: Pain management pathway Tomorrow's Labs & Rationales: CBCs, BEP
[2018-03-28 08:42] LABS: ABSOLUTE BASOPHIL COUNT 0 /CUMM (0.0-0.2); ABSOLUTE EOSINOPHIL COUNT 0.2 /CUMM (0.0-0.7); ABSOLUTE LYMPH COUNT 1.5 /CUMM (1.2-3.4); ABSOLUTE MONOCYTE COUNT 0.5 /CUMM (0.10-0.60); BASOPHIL % 0.4 % (0.0-2.0); EOSINOPHIL % 2.9 % (0-5); GRANULOCYTE % 64.7 % (42.2-75.2); HEMATOCRIT 36.3 % (37-47); MEAN CORPUSCULAR HGB 31.8 PG (27.0-31.0); MEAN CORPUSCULAR HGB CONC 33.9 G/DL (33.0-37.0); MEAN CORPUSCULAR VOLUME 93.9 FL (81.0-99.0); MEAN PLATELET VOLUME 8.3 FL (7.4-10.4); PLATELET COUNT 209 /CUMM (130-400); RBC DISTRIBUTION WIDTH 13.4 % (11.5-14.5); RED BLOOD CELL CT 3.87 /CUMM (4.20-5.40); WHITE BLOOD CELL COUNT 6.1 /CUMM (4.8-10.8)
--- NOTE | 2018-03-28 10:07 | Admission Certification ---
Admission Certification Certification Statement - As attending physician, I certify that at the time of - admission, based on clinical presentation, severity of - symptoms, need for further diagnostic testing and - therapeutic interventions, and risk of adverse outcomes - without in-hospital treatment, in my clinical assessment, - this patient requires an acute hospital stay for a minimum - of two nights or longer. I have also considered psychsocial - factors such as support system, advanced age, financial - issues, cognitive issues, and failed out-patient treatments, - past re-admission history, safety of patient, and lack of - compliance as applicable. Specific rationale supporting this admission is: [place] extra doses, lithium toxicity. Homicidal ideations
--- NOTE | 2018-03-28 10:11 | PN- Att Addend ---
Attending Addendum Attending Brief Note 57-year-old female with psychiatric history, stated that the medication is not working, took 2 extra lithium 7 1 olanzapine. She has been having racing thoughts and homicidal ideations. For those reasons she comes to the emergency room, original lithium level 2.0. Slowly coming down. The patient will be monitored closely medically first and then followed by psychiatry. Current Medications Sig/Gayatri Start time Last Medication Dose Route Stop Time Status Admin Acetaminophen 650 MG Q6P PRN 03/27 2215 AC PO Acetaminophen 1,000 MG Q6P PRN 03/27 2215 AC IV Heparin Sodium 5,000 UNIT Q8 03/28 0600 AC (Porcine) SC Lorazepam 0.5 MG ONE ONE 03/28 0045 DC 03/28 PO 03/28 004 0035 Lorazepam 0 .STK-MED ONE 03/28 0036 DC PO Nicotine 7 MG DAILY PRN 03/27 2215 AC TOP Polyethylene Glycol 17 GM AT BEDTIME PRN 03/27 221 AC PO Potassium Chloride 40 MEQ ONCE ONE 03/28 0700 CAN PO 03/28 0701 Senna/Docusate Sodium 1 TAB AT BEDTIME PRN 03/27 2215 AC PO Sodium Chloride 1,000 ML Q10H 03/28 0600 AC 03/28 IV 0723 Sodium Chloride 1,000 ML BOLUS ONE 03/27 1600 DC 03/27 IV 03/27 1659 1622 Sodium Chloride 1,000 ML BOLUS ONE 03/27 1600 DC 03/27 IV 03/27 1659 1622 Laboratory Tests 03/28/18 0556: Anion Gap 7, Estimated GFR > 60, BUN/Creatinine Ratio 14.0, Troponin I < 0.01, CBC w Diff NO MAN DIFF REQ, RBC 3.87 L, MCV 93.9, MCH 31.8 H, MCHC 33.9, RDW 13.4, MPV 8.3, Gran % 64.7, Lymphocytes % 24.3, Monocytes % 7.7, Eosinophils % 2.9, Basophils % 0.4, Absolute Granulocytes 4.0, Absolute Lymphocytes 1.5, Absolute Monocytes 0.5, Absolute Eosinophils 0.2, Absolute Basophils 0, [place] 1.1 03/28/18 0400: [place] Cancelled 03/28/18 0019: [place] 1.1 03/27/18 2148: Anion Gap 2 L, Estimated GFR > 60, BUN/Creatinine Ratio 12.0 03/27/181999: [place] 1.3 H 03/27/18 1650: [place] 2.0 *H 03/27/18 1413: Urine Opiates Screen < 100, Methadone Screen < 40, Barbiturate Screen < 60, Ur Phencyclidine Scrn < 6.00, Amphetamines Screen < 100, U Benzodiazepines Scrn < 85, Urine Cocaine Screen < 50, Urine Cannabis Screen < 5.00, Urine Color YEL, Urine Clarity CLEAR, Urine pH 7.0, Ur Specific [place] 1.010, Urine Protein NEG, Urine Ketones NEG, Urine Nitrite NEG, Urine Bilirubin NEG, Urine Urobilinogen 0.2, Ur Leukocyte Esterase NEG, Ur Microscopic SEDIMENT EXAMINED, Urine RBC RARE , Urine WBC RARE, Ur Epithelial Cells OCCAS, Urine Hemoglobin TRACE-INTACT, Urine Glucose NEG 03/27/18 1401: Anion Gap 10, Estimated GFR > 60, BUN/Creatinine Ratio 20.0, Glucose 134 H, Calcium 9.8, Total Bilirubin 0.6, AST 19, ALT 42, Alkaline Phosphatase 69, Troponin I < 0.01, Total Protein 6.3, Albumin 4.2, Globulin 2.1, Albumin/ Globulin Ratio 2.0, CBC w Diff NO MAN DIFF REQ, RBC 4.35, MCV 93.3, MCH 32.3 H, MCHC 34.6, RDW 12.6, MPV 8.0, Gran % 78.5 H, Lymphocytes % 14.7 L, Monocytes % 4.6, Eosinophils % 1.8, Basophils % 0.4, Absolute Granulocytes 6.3, Absolute Lymphocytes 1.2, Absolute Monocytes 0.4, Absolute Eosinophils 0.1, Absolute Basophils 0, Salicylates < 1.0, Acetaminophen < 10.0 L, [place] 1.6 *H, Serum Alcohol < 10.0 Vital Signs Date Time Temp Pulse Resp B/P B/P Pulse O2 O2 Flow FiO2 Mean Ox Delivery Rate 03/28 924 98.6 76 18 126/84 98 Room Air 03/28 613 97.1 75 20 111/55 95 Room Air
[2018-03-28 11:53] VITALS: BP 131/85
--- NOTE | 2018-03-28 12:00 | Cons- Psychiatry ---
Psychiatric Consult Date of Consult: 03/28/18 Reason for Consult: [place] toxicity History of Present Illness: "I did not think my medication was working so I thought I would take more to make me feel better". [place] level was 2, sodium was low and the patient is being admitted medically. EKG shows some T-wave flattening. [place] level was normal as of last evening. The patient is a 57-year-old female who presented to the emergency room requesting a psychiatric evaluation and complaining of thoughts of wanting to kill her family. She reports that she took 3 extra 300 mg lithium tablets and 3X 50 mg olanzapine in an attempt to feel better and to stop her "racing thoughts". The patient's main complaint is what she refers to as "racing thoughts". These are thoughts that she has about wanting to hurt her family. She does not want to hurt her family and does not understand why she has a thoughts but cannot stop them. She is not compelled to act on them. The patient has 5 children and 4 grandchildren. She used to enjoy her family but for the past 6 months or so has been finding them overwhelming. She reports being anxious and irritable. She spends most of her day sleeping. Sleep at night is fair. Appetite is poor, energy poor, concentration is poor. The patient is lost interest in her usual activities. She has lost a sense of pleasure. She reports diurnal variation of mood with the mornings being worst. The patient does not want to . There are no psychotic symptoms. At baseline the patient describes herself as "a bit obsessive-compulsive". She has had various rituals and routines throughout her life such as needed to keep all the kitchen chairs in order. Past psychiatric history: The patient has had several psychiatric admissions, the last at this facility in March of last year. It seems she often complains of anxiety and restlessness and has been diagnosed with unspecified bipolar disorder, anxiety disorder, panic disorder and OCD.. The patient adamantly denies any periods of increased goal-directed activity, reduced need for sleep or increased energy. There is no history of suicide attempts. The patient has a history of poor medication adherence per her records. Of note she has been on fluoxetine at 20 mg in the past and sertraline at 50 mg but there is no indication that she has been as an SSRI at any higher than this dose. Substance abuse history: Patient reports that she likes to have a glass of wine every day after dinner but that her daughter has dissuaded her from this she believes it will interact with her medication. Blood alcohol on admission was undetectable. Patient denies any other substance use. Allergies: Coded Allergies: NO KNOWN ALLERGIES (09/14/15) Current Medications: Psychiatric medications: [place] ER 450 mg p.o. a.m. and at bedtime Olanzapine 10 mg p.o. a.m., 50 mg p.o. p.m Propranolol 10 mg p.o. twice daily Rozerem 8 mg p.o. 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 She was oriented 3 and alert. Vital signs were normal. Eye contact is good. Speech was normal in rate, rhythm, volume and tone. Mood was depressed, affect was sad and anxious. Thought process is normal in tempo, stream and form. There are no delusions. Obsessional ruminations about wanting to hurt her family. Attention and concentration were good. There was no perceptual abnormality. Impulse control is good. Recent and remote memory are grossly intact. Intelligence level is likely low average, fund of knowledge average, use of language appropriate. Patient's insight is fair, judgment unimpaired. Lab Results: Lab Anion Gap 7 03/28/18 0556 BUN 7 mg/dL 03/28/18 0556 BUN/Creatinine Ratio 14.0 % 03/28/18 0556 Carbon Dioxide 23 mmol/L 03/28/18 0556 Chloride 111 mmol/L H 03/28/18 0556 Creatinine 0.5 mg/dL 03/28/18 0556 Estimated GFR > 60 ml/min 03/28/18 0556 Free T4 1.05 ng/dL 11/05/15 0809 Potassium 3.8 mmol/L 03/28/18 0556 Sodium 140 mmol/L 03/28/18 0556 TSH 1.080 uIU/mL 03/31/17 1755 [place] 1.6 mmol/L*H 03/27/18 1401 [place] 2.0 mmol/L*H 03/27/18 1650 [place] 1.3 mmol/L H 03/27/18 2000 [place] 1.1 mmol/L 03/28/18 0556 [place] 1.1 mmol/L 03/28/18 0019 Diffential Diagnosis: -Major depressive disorder recurrent moderate with anxious distress -Obsessive-compulsive personality traits Impression: The patient's depression is not responding to her current medication regime. She is depressed and anxious with an increase in obsessional thoughts. She is not suicidal or homicidal. There are no psychotic symptoms. She has a history of poor medication adherence. Provisional Treatment Plan: -I have left a message for Niru pitt APRN who is her outpatient psychiatric prescriber to discuss medication choices. The patient may benefit from a high- dose SSRI. -Suggest not restarting lithium as it is ineffective -Suggest restarting other medications providing there are no medical contra indications -The patient would likely benefit from an intensive outpatient program on discharge. I will discuss this with her provider. Thank you for consulting us on this patient. Psychiatry will follow.
--- NOTE | 2018-03-28 12:51 | Incdntl Nt Psy ---
Incidental Note Notation: Spoke with Niru Mclaughlin APRN. She reports that the patient has done best on an antipsychotic. She recalls the patient becoming more anxious on sertraline 50mg. Agrees with stopping [place]. Has not seen the patient manic but questions schizoaffective disorder. Agrees with referal to IOP on discharge.
[2018-03-28 19:36] VITALS: BP 138/88
[2018-03-28 19:44] VITALS: BP 138/88
[2018-03-28 22:19] VITALS: BP 140/90
[2018-03-29 06:54] VITALS: BP 140/92
[2018-03-29 08:00] VITALS: BP 140/92
--- NOTE | 2018-03-29 08:33 | PN- Housestaff ---
Subjective Follow-up For: Suicidal/Homocidal thoughts Lithiam toxicity Subjective: Patient seen and examined at bedside. She is complaining of racing thoughts. She denies fever, chills, chest pain, abdominal pain, diarrhea, suicidal ideation, homicidal ideation, palpitation. Review of Systems Constitutional: Reports: see HPI. Objective Last 24 Hrs of Vital Signs/I&O Vital Signs Date Time Temp Pulse Resp B/P B/P Pulse O2 O2 Flow FiO2 Mean Ox Delivery Rate 03/29 0654 97.9 69 18 140/92 96 / 2308 140/90 03/28 2219 98.3 73 20 140/90 95 Room Air 03/28 1944 98.6 75 18 138/88 96 Room Air 03/28 1936 98.6 75 18 138/88 03/28 1844 98.9 72 18 148/81 94 Room Air 03/28 1608 98.7 87 18 116/65 95 Room Air 03/28 1249 98.4 96 18 131/85 03/28 1153 98.4 96 18 131/85 03/28 1150 98.4 96 18 131/85 97 03/28 0924 98.6 76 18 126/84 98 Room Air Intake & Output 03/29 1600 03/29 0800 03/29 0000 Intake Total 920 520 Output Total Balance 920 520 Intake, IV 800 400 Intake, Oral 120 120 Patient 189 lb Weight Weight Bed scale Measurement Method Physical Exam General Appearance: Alert, Oriented X3, Cooperative, No Acute Distress Cardiovascular: Normal S1, Normal S2, No Murmurs Lungs: Clear to Auscultation, Normal Air Movement Abdomen: Normal Bowel Sounds, Soft, No Tenderness, No Hepatospenomegaly, No Masses Extremities: No Clubbing, No Cyanosis, No Edema, Normal Pulses Assessment/Plan Assessment: 57-year-old female with with past medical history bipolar disorder, depression, alcohol dependence presented to emergency department for further evaluation of suicidal thoughts and lithium toxicity. At the time of presentation emergency department her vitals and labs are given below Vitals: Temperature was 98, heart rate 85, respiratory rate 18, blood pressure 1 1/55, pulse oximetry 94% Labs: WBC 6.1, hemoglobin/hematocrit 12.3/36.3, MCV 93.9 [place] level was 1.6 Sodium 138, potassium 3.5, GFR more than 60, creatinine point Problems list: * [place] toxicity * Suicidal ideation [place] toxicity: * According to the patient she said that she had some suicidal and homicidal thoughts * She took the lithium and 1 olanzapine tablet just becasue to calm her down * Lithiam level is normal now * She denies symptom and sign of lithium toxicity Suicidal ideas: * Patient still having some racing thoughts * But she having no suicidal or homocidal ideation * will follow up on psychiatry recommendation DVT/GI prophylaxis Full code Problem List: 1. OCD (obsessive compulsive disorder) 2. Auditory hallucination 3. Intoxication 4. Homicidal ideation 5. Bipolar disorder 6. Suicide ideation 7. Anxiety Pain Ratin Pain Location: No pain Pain Goal: Remain pain free Pain Plan: Pain management pathway Tomorrow's Labs & Rationales: No labs Tomorrow's Labs & Rationales: No labs
--- NOTE | 2018-03-29 10:53 | PN- Att Addend ---
Attending Addendum Attending Brief Note Patient laying in bed no new complaints, states she wants to talk to the psychiatrist. Her vital signs are stable. No major changes on physical her face is a little puffy, Last kidney function tests were normal. Will check with psychiatry to see what the disposition plans will be either going home will call to psychiatric inpatient for follow-up it depends on what the psychiatrist will find on his visit. Intake & Output 03/29 1600 03/29 0400 03/28 1600 03/28 0400 03/27 1600 03/27 0400 Intake Total 920 520 Output Total Balance 920 520 Intake, IV 800 400 Intake, Oral 120 120 Patient 189 lb 170 lb 170 lb Weight Weight Bed scale Reported by Patient Reported by Patient Measurement Method Current Medications Sig/Gayatri Start time Last Medication Dose Route Stop Time Status Admin Acetaminophen 650 MG Q6P PRN 03/27 2215 AC PO Acetaminophen 1,000 MG Q6P PRN 03/27 221 AC IV Heparin Sodium 5,000 UNIT Q8 03/28 0600 AC (Porcine) SC Nicotine 7 MG DAILY PRN 03/27 221 AC TOP Olanzapine 15 MG QPM 03/28 2100 AC 03/28 PO 2308 Olanzapine 10 MG DAILY 03/28 1230 AC 03/28 PO 1249 Polyethylene Glycol 17 GM AT BEDTIME PRN 03/27 2215 AC PO Propranolol HCl 10 MG BID 03/28 1230 AC 03/29 PO 1033 [place] 8 MG AT BEDTIME 03/28 2100 AC 03/28 PO 2310 Senna/Docusate Sodium 1 TAB AT BEDTIME PRN 03/27 221 AC PO Sodium Chloride 1,000 ML Q10H 03/28 0600 AC 03/29 IV 0508 Laboratory Tests 03/28/18 0556: Anion Gap 7, Estimated GFR > 60, BUN/Creatinine Ratio 14.0, Troponin I < 0.01, CBC w Diff NO MAN DIFF REQ, RBC 3.87 L, MCV 93.9, MCH 31.8 H, MCHC 33.9, RDW 13.4, MPV 8.3, Gran % 64.7, Lymphocytes % 24.3, Monocytes % 7.7, Eosinophils % 2.9, Basophils % 0.4, Absolute Granulocytes 4.0, Absolute Lymphocytes 1.5, Absolute Monocytes 0.5, Absolute Eosinophils 0.2, Absolute Basophils 0, [place] 1.1 03/28/18 0400: [place] Cancelled 03/28/18 0019: [place] 1.1 03/27/18 2148: Anion Gap 2 L, Estimated GFR > 60, BUN/Creatinine Ratio 12.0 03/27/18 2000: [place] 1.3 H 03/27/18 1650: [place] 2.0 *H 03/27/18 1413: Urine Opiates Screen < 100, Methadone Screen < 40, Barbiturate Screen < 60, Ur Phencyclidine Scrn < 6.00, Amphetamines Screen < 100, U Benzodiazepines Scrn < 85, Urine Cocaine Screen < 50, Urine Cannabis Screen < 5.00, Urine Color YEL, Urine Clarity CLEAR, Urine pH 7.0, Ur Specific [place] 1.010, Urine Protein NEG, Urine Ketones NEG, Urine Nitrite NEG, Urine Bilirubin NEG, Urine Urobilinogen 0.2, Ur Leukocyte Esterase NEG, Ur Microscopic SEDIMENT EXAMINED, Urine RBC RARE , Urine WBC RARE, Ur Epithelial Cells OCCAS, Urine Hemoglobin TRACE-INTACT, Urine Glucose NEG 03/27/18 1401: Anion Gap 10, Estimated GFR > 60, BUN/Creatinine Ratio 20.0, Glucose 134 H, Calcium 9.8, Total Bilirubin 0.6, AST 19, ALT 42, Alkaline Phosphatase 69, Troponin I < 0.01, Total Protein 6.3, Albumin 4.2, Globulin 2.1, Albumin/ Globulin Ratio 2.0, CBC w Diff NO MAN DIFF REQ, RBC 4.35, MCV 93.3, MCH 32.3 H, MCHC 34.6, RDW 12.6, MPV 8.0, Gran % 78.5 H, Lymphocytes % 14.7 L, Monocytes % 4.6, Eosinophils % 1.8, Basophils % 0.4, Absolute Granulocytes 6.3, Absolute Lymphocytes 1.2, Absolute Monocytes 0.4, Absolute Eosinophils 0.1, Absolute Basophils 0, Salicylates < 1.0, Acetaminophen < 10.0 L, [place] 1.6 *H, Serum Alcohol < 10.0 Vital Signs Date Time Temp Pulse Resp B/P B/P Pulse O2 O2 Flow FiO2 Mean Ox Delivery Rate 03/29 1033 140/92 03/29 0654 97.9 69 18 140/92 96 03/28 2308 140/90 03/289 98.3 73 20 140/90 95 Room Air 03/28 1944 98.6 75 18 138/88 96 Room Air 03/28 1936 98.6 75 18 138/88 03/28 1844 98.9 72 18 148/81 94 Room Air 03/28 1608 98.7 87 18 116/65 95 Room Air 03/28 1249 98.4 96 18 131/85 03/28 1153 98.4 96 18 131/85 03/28 1150 98.4 96 18 131/85 97
[2018-03-29 14:17] VITALS: BP 128/78
--- NOTE | 2018-03-29 14:29 | PN- Psychiatry ---
Assessment/Plan Impression: The patient was admitted having taken extra lithium in an attempt to feel better. She is now medically stable. Following discussion with the patient and her outpatient provider, lithium has been discontinued as the patient felt it was ineffective. The patient is not suicidal, homicidal or psychotic. She declines referral to [facility]. Suggestion: - Continue olanzapine and propranolol as ordered -The patient has a follow-up appointment with Niru pitt APRN on April 03 Subjective Subjective: "I need something to help me calm down" Objective Last 24 Hrs of Vital Signs/I&O Vital Signs Date Time Temp Pulse Resp B/P B/P Pulse O2 O2 Flow FiO2 Mean Ox Delivery Rate 03/29 1417 98.2 67 16 128/78 96 Room Air 03/29 1033 140/92 03/29 0800 97.9 69 18 140/92 03/29 0654 97.9 69 18 140/92 96 03/28 2308 140/90 03/28 2219 98.3 73 20 140/90 95 Room Air 03/28 1944 98.6 75 18 138/88 96 Room Air 03/28 1936 98.6 75 18 138/88 03/28 1844 98.9 72 18 148/81 94 Room Air 03/28 1608 98.7 87 18 116/65 95 Room Air Intake & Output 03/29 1600 03/29 0800 03/29 0000 Intake Total 920 520 Output Total Balance 920 520 Intake, IV 800 400 Intake, Oral 120 120 Patient 85.502 kg Weight Weight Bed scale Measurement Method Physical Exam: The patient was encountered lying on her hospital bed. Per staff she is spending most of her time in bed. Gait was steady. She was alert and oriented described her mood is anxious, her affect was blunted. She was not suicidal or homicidal. Thought process was normal in tempo, stream and concrete in form. There were no delusions or obsessions. Attention and concentration were good. There was no perceptual abnormality. Impulse control is good. Intelligence level is likely low average, fund of knowledge average, use of language appropriate. Patient's insight is limited. Judgment is unimpaired.
[2018-03-29 22:10] VITALS: BP 130/70
[2018-03-30 07:00] VITALS: BP 119/71
--- NOTE | 2018-03-30 07:33 | PN- Housestaff ---
Subjective Follow-up For: Homicidal ideation Acute psychosis [place] toxicity Subjective: Patient seen and examined at bedside. She is complaining of racing thoughts, homicidal thoughts. She is saying she want to see psychiatrist. She denies fever, chill, chest pain, abdominal pain, diarrhea, constipation, suicidal ideation, suicidal intention, Review of Systems Constitutional: Reports: see HPI. Objective Last 24 Hrs of Vital Signs/I&O Vital Signs Date Time Temp Pulse Resp B/P B/P Pulse O2 O2 Flow FiO2 Mean Ox Delivery Rate 03/30 1600 98.2 62 18 140/88 03/30 1427 98.2 62 18 140/88 95 Room Air 03/30 0835 119/71 03/30 0700 98.0 50 18 119/71 97 03/29 2210 98.5 70 18 130/70 93 Room Air 03/29 2043 72 130/78 Intake & Output 03/30 1600 03/30 0800 03/30 0000 Intake Total 600 120 200 Output Total 400 Balance 600 120 -200 Intake, IV 200 Intake, Oral 600 120 Output, Urine 400 Physical Exam General Appearance: Alert, Oriented X3, Cooperative, No Acute Distress Assessment/Plan Assessment: Assessment: 57-year-old female with with past medical history bipolar disorder, depression, alcohol dependence presented to emergency department for further evaluation of suicidal thoughts and lithium toxicity. At the time of presentation emergency department her vitals and labs are given below Vitals: Temperature was 98, heart rate 85, respiratory rate 18, blood pressure 1 1/55, pulse oximetry 94% Labs: WBC 6.1, hemoglobin/hematocrit 12.3/36.3, MCV 93.9 [place] level was 1.6 Sodium 138, potassium 3.5, GFR more than 60, creatinine point Problems list: * [place] toxicity * Homicidal/suicidal/racing thoughts * History of bipolar disorder, OCD, depression, anxiety [place] toxicity: * [place] is hold for now * Initially her lithium level was elevated * But no heart rhythm liver is normal Suicidal ideas/homicidal ideation: * Patient having still homicidal thoughts * She also complaining of racing thoughts * Psychiatry recommendation appreciated * Psychiatrist recommended to start 20 mg escitalopram * Patient and family want to ship some other hospital for [facility] * Patient CMR and other documentation ready * But is not available in any hospital for now * Once the bed available we can transfer the patien * will follow up on psychiatry recommendation History of bipolar disorder, OCD, depression, anxiety: We continue his home medication of olanzapine, propranolol, lorazepam, gabapentin.. DVT/GI prophylaxis Full code Problem List: 1. Depression 2. Anxiety 3. Bipolar disorder 4. Homicidal ideation 5. Intoxication 6. Auditory hallucination 7. OCD (obsessive compulsive disorder) Pain Ratin Pain Location: No pain Pain Goal: Remain pain free Pain Plan: Pain management pathway Tomorrow's Labs & Rationales: No labs
--- NOTE | 2018-03-30 08:48 | Patient Discharge Instructions ---
Discharge Instructions General Discharge Information You were seen/treated for: Homicidal thoughts, psychosis You had these procedures: NONE Watch for these problems: Homicidal thoughts, suicidal thoughts, palpitation, chest pain, apprehension, feeling of being dying, Special Instructions: Please follow-up with your psychiatrist in 2 week Please follow-up with your primary care physician in 1 week In case of any homicidal thoughts, plans please contact your primary care doctor Diet Continue normal diet: Yes Activity Activity Self Limited: Yes Acute Coronary Syndrome Inclusion Criteria At DC or during hospital stay patient has or had the following: ACS DIAGNOSIS No Discharge Core Measures Meds if any: Prescribed or Continued at Discharge Meds if any: NOT Prescribed or Continued at Discharge Congestive Heart Failure Inclusion Criteria At DC or during hospital stay patient has or had the following: CHF DIAGNOSIS No Discharge Core Measures Meds if any: Prescribed or Continued at Discharge Meds if any: NOT Prescribed or Continued at Discharge Cerebrovascular accident Inclusion Criteria At DC or during hospital stay patient has or had the following: CVA/TIA Diagnosis No Discharge Core Measures Meds if any: Prescribed or Continued at Discharge Meds if any: NOT Prescribed or Continued at Discharge Venous thromboembolism Inclusion Criteria VTE Diagnosis No VTE Type NONE VTE Confirmed by (Test) NONE Discharge Core Measures - Per Current guidelines, there needs to be overlap - treatment for the first 5 days of Warfarin therapy. - If discharged on Warfarin prior to 5 days of - overlap therapy, the patient will need to be - assessed for post discharge needs including - *Post discharge parental anticoagulation - *Warfarin and/or parental anticoagulation education - *Follow up date to check INR post discharge At least 5 days overlap therapy as Inpatient No Meds if any: Prescribed or Continued at Discharge Note: Overlap Therapy is Warfarin and Anticoagulant Meds if any: NOT Prescribed or Continued at Discharge
--- NOTE | 2018-03-30 08:59 | Incdntl Nt Psy ---
Incidental Note Notation: T/C from Niru Mclaughlin APRN, patient's outpatient triple valve tester. Pt called her requesting meds to help with intrusive thoughts. Discussed options. Pt has become hyponatremic on sertraline (in combination with valproate). Has had episodes of poor impulse control and agitation but no jerry erik. Will start citalopram 20 mg po daily today. Niru will see her on Monday and continue to encourage pt to attend IOP where medication can be adjusted more frequently.
[2018-03-30] MEDS ORDERED: CITALOPRAM HBR20 MG PO (11:17)
--- NOTE | 2018-03-30 11:25 | PN- Att Addend ---
Attending Addendum Attending Brief Note VPer nurses patient may still have HI. In bed ital signs stable no fever, no new changes on physical exam. Will check with psychiatry regarding disposition plans. Intake & Output 03/30 1600 03/30 1600 03/29 04003/28 1600 03/28 040 Intake Total 554 668 8482 520 Output Total 400 500 Balance 120 -200 870 520 Intake, IV 200 800 400 Intake, Oral 120 570 120 Output, Urine 400 500 Patient 189 lb 170 lb Weight Weight Bed scale Reported by Patient Measurement Method Current Medications Sig/Gayatri Start time Last Medication Dose Route Stop Time Status Admin Acetaminophen 650 MG Q6P PRN 03/27 221 AC 03/29 PO 1555 Acetaminophen 1,000 MG Q6P PRN 03/27 221 AC IV Citalopram 20 MG DAILY 03/30 900 AC Hydrobromide PO Heparin Sodium 5,000 UNIT Q8 03/28 06 AC (Porcine) SC Hydrocodone Bitart/ 0 .STK-MED ONE 03/29 2055 DC Acetaminophen PO Nicotine 7 MG DAILY PRN 03/27 2215 AC TOP Olanzapine 15 MG QPM 03/28 2100 AC 03/29 PO 2043 Olanzapine 10 MG DAILY 03/28 1230 AC 03/30 PO 0835 Polyethylene Glycol 17 GM AT BEDTIME PRN 03/27 221 AC PO Propranolol HCl 10 MG BID 03/28 1230 AC 03/30 PO 0835 Ramelteon 8 MG AT BEDTIME 03/28 2100 AC 03/29 PO 2043 Senna/Docusate Sodium 1 TAB AT BEDTIME PRN 03/27 2215 AC PO Sodium Chloride 1,000 ML Q10H 03/28 06 DC 03/29 IV 1555 Laboratory Tests 03/28/18 0556: Anion Gap 7, Estimated GFR > 60, BUN/Creatinine Ratio 14.0, Troponin I < 0.01, CBC w Diff NO MAN DIFF REQ, RBC 3.87 L, MCV 93.9, MCH 31.8 H, MCHC 33.9, RDW 13.4, MPV 8.3, Gran % 64.7, Lymphocytes % 24.3, Monocytes % 7.7, Eosinophils % 2.9, Basophils % 0.4, Absolute Granulocytes 4.0, Absolute Lymphocytes 1.5, Absolute Monocytes 0.5, Absolute Eosinophils 0.2, Absolute Basophils 0, [place] 1.1 03/28/18 0400: [place] Cancelled 03/28/18 0019: [place] 1.1 03/27/18 2148: Anion Gap 2 L, Estimated GFR > 60, BUN/Creatinine Ratio 12.0 03/27/18 2000: [place] 1.3 H 03/27/18 1650: [place] 2.0 *H 03/27/18 1413: Urine Opiates Screen < 100, Methadone Screen < 40, Barbiturate Screen < 60, Ur Phencyclidine Scrn < 6.00, Amphetamines Screen < 100, U Benzodiazepines Scrn < 85, Urine Cocaine Screen < 50, Urine Cannabis Screen < 5.00, Urine Color YEL, Urine Clarity CLEAR, Urine pH 7.0, Ur Specific [place] 1.010, Urine Protein NEG, Urine Ketones NEG, Urine Nitrite NEG, Urine Bilirubin NEG, Urine Urobilinogen 0.2, Ur Leukocyte Esterase NEG, Ur Microscopic SEDIMENT EXAMINED, Urine RBC RARE , Urine WBC RARE, Ur Epithelial Cells OCCAS, Urine Hemoglobin TRACE-INTACT, Urine Glucose NEG 03/27/18 1401: Anion Gap 10, Estimated GFR > 60, BUN/Creatinine Ratio 20.0, Glucose 134 H, Calcium 9.8, Total Bilirubin 0.6, AST 19, ALT 42, Alkaline Phosphatase 69, Troponin I < 0.01, Total Protein 6.3, Albumin 4.2, Globulin 2.1, Albumin/ Globulin Ratio 2.0, CBC w Diff NO MAN DIFF REQ, RBC 4.35, MCV 93.3, MCH 32.3 H, MCHC 34.6, RDW 12.6, MPV 8.0, Gran % 78.5 H, Lymphocytes % 14.7 L, Monocytes % 4.6, Eosinophils % 1.8, Basophils % 0.4, Absolute Granulocytes 6.3, Absolute Lymphocytes 1.2, Absolute Monocytes 0.4, Absolute Eosinophils 0.1, Absolute Basophils 0, Salicylates < 1.0, Acetaminophen < 10.0 L, [place] 1.6 *H, Serum Alcohol < 10.0 Vital Signs Date Time Temp Pulse Resp B/P B/P Pulse O2 O2 Flow FiO2 Mean Ox Delivery Rate 03/30 0835 119/71 03/30 0700 98.0 50 18 119/71 97 03/29 2210 98.5 70 18 130/70 93 Room Air 03/29 2043 72 130/78 03/29 1417 98.2 67 16 128/78 96 Room Air
--- NOTE | 2018-03-30 12:05 | PN- Psychiatry ---
Assessment/Plan Impression: The patient is medically cleared. However she reports ongoing intrusive thoughts about killing her family. The thoughts are obsessional and ruminative in nature. She finds them very distressing. She is concerned about her ability to be safe if discharged home. She has other obsessions with associated compulsions. The patient was admitted with lithium toxicity. She had taken an excess of medication in an attempt to manage her symptoms. The patient needs inpatient psychiatric admission for stabilization. Spoke with the patient's daughter Gabriela who is a cardiac nurse. She reports that her mother has been acting out on her compulsions at home. For example her mother is a non-smoker but recently has been compulsively smoking 1 cigarette after the other, pulling butts and smoking them if she cannot get a cigarette. She has also been compulsively drinking water. In the past this is has caused hyponatremia. Of note, the patient's daughter has never seen her mother either manic or hypomanic. She states that her mother was functioning perfectly well until 2 years ago. She describes her mother as having obsessional traits at baseline, possibly OCD. Her mother for example did not leave the house and most all the chairs were in order around the table, she continually put her hand under the faucet to check that it was off, continue to check the stove and so on. She reports that 2 years ago her mother felt the need to disclose to the whole family that she had had an affair 10 years previously. Since that time she says her mother is never returned to baseline. Diagnostic impression is of major depressive disorder recurrent, severe; rule out persistent depressive disorder; OCD. Suggestion: The patient would benefit from inpatient psychiatric admission. She is agreeable to admission on a voluntary basis. As there are no beds available at this hospital a bed search will be carried out. Subjective Subjective: "I keep having the thoughts and I know they are just going to get worse when I get home". The patient has repetitive intrusive thoughts about harming her family. The thoughts are abhorrent to her but she is unable to distract herself from them. Objective Last 24 Hrs of Vital Signs/I&O Vital Signs Date Time Temp Pulse Resp B/P B/P Pulse O2 O2 Flow FiO2 Mean Ox Delivery Rate 03/30 0835 119/71 03/30 0700 98.0 50 18 119/71 97 03/29 2210 98.5 70 18 130/70 93 Room Air 03/29 2043 72 130/78 03/29 1417 98.2 67 16 128/78 96 Room Air Intake & Output 03/30 1600 03/30 0800 03/30 0000 Intake Total 120 200 Output Total 400 Balance 120 -200 Intake, IV 200 Intake, Oral 120 Output, Urine 400 Physical Exam: The patient is alert and oriented 3. Gait is steady. Eye contact is good. Speech is monotonous, normal in rate, rhythm and volume. She describes her mood is depressed and anxious. Her affect is blunted. She has intrusive thoughts about killing her family. She is not suicidal. Thought process is normal in tempo and stream. Thought form was concrete. Thought content is almost exclusively obsessional. Attention and concentration were fair. There was no perceptual abnormality. Impulse control is fair. Intelligence level likely low average, fund of knowledge average, use of language appropriate. Recent and remote memory intact. Insight good, judgment unimpaired.
[2018-03-30 14:27] VITALS: BP 140/88
[2018-03-30 16:00] VITALS: BP 140/88
--- NOTE | 2018-03-30 16:01 | Discharge Summary ---
Visit Information Visit Dates Admission Date: 03/27/18 Discharge Date: 04/02/2018 Hospital Course Course Attending Physician: Jeffrey Vidal MD Primary Care Physician: Marcy ALEXANDRE,Jeffrey Hospital Course: Patient is a 57-year-old female with past medical history of bipolar disorder, generalized anxiety disorder, panic disorder, obsessive-compulsive disorder, with previous admissions for polydipsia presented with chief complaint of hearing voices and homicidal ideations. Patient reported that over the past few days he has been having uncomfortable thoughts of hurting people in general including her family. Reports that she feels like there are her own thoughts and not voices. Patient reports that she has no reason to be having these thoughts and that her family has been very good to her. States that for this reason she has been taking more lithium. States she has been taking 3-4 extra tablets of lithium as well as additional tablet of olanzapine. States that today she took an extra 3 tablets of lithium 450 mg extended release and 3 tablets of olanzapine 15 mg. Vitals: Temperature 98.5, heart rate 76-89, respiration rate 18-20, blood pressure 129/ 74, saturating at 94-90% on room air Labs: Significant for sodium of 132, potassium of 3.5, creatinine of 0.5, lithium level of 1.6 which went up to 2.0 and later came down to 1.3. EKG was done normal sinus rhythm with heart rate of 73, WA interval of 188, QTC 454, T-wave flattening in 3, aVF and aVL -- [place] toxicity Patient is a 57-year-old female with past medical history significant for multiple psychiatric comorbidities presenting this admission with lithium toxicity. Patient's lithium level initially went up to 2.0. Poison control was informed. Recommended to give fluids. After aggressive hydration her lithium came down to normal. Her electrolytes were within normal limits. EKG remained stable. Psychiatrist on board. Given her lithium toxicity and ineffective nature of lithium, we stopped her lithium completely after talking to her outpatient psychiatrist Niru. Homicidal ideations Major depressive disorder recurrent moderate with anxious distress Obsessive-compulsive personality traits The patient's depression is not responding to her current medication regime. She is depressed and anxious with an increase in obsessional thoughts. She is not suicidal or homicidal. There are no psychotic symptoms. She has a history of poor medication adherence. She had intrusive thoughts of killing her family. The thoughts are obsessional and ruminative in nature. She finds them very distressing. She is concerned about her ability to be safe if discharged home. She has other obsessions with associated compulsions. The patient was admitted with lithium toxicity. She had taken an excess of medication in an attempt to manage her symptoms. The patient needs inpatient psychiatric admission for stabilization. Patient was started on citalopram 20 mg daily. She was continued on olanzapine 10 mg in a.m., 15 mg every afternoon She was continued on propranolol 10 mg twice daily She was given Rozerem 8 mg at bedtime Current smoker Smoking cessation and nicotine patch DVT prophylaxis: Alps, heparin subcutaneous Diet: Regular diet Code: Full code Allergies: Coded Allergies: NO KNOWN ALLERGIES (09/14/15) Disposition Summary Disposition Principal Diagnosis: [place] toxicity Additional Diagnosis: Homicidal ideation Obsessive-compulsive disorder Discharge Disposition: other general hospital Discharge Instructions General Discharge Information Code Status: Full Code Patient's Diet: As tolerated Patient's Activity: As tolerated Follow-Up Instructions/Appts: Follow-up with PCP in 1 week after discharge follow-up with psychiatrist in 1 week after discharge Medications at Discharge Discharge Medications: Stop taking the following medications: Olanzapine (Olanzapine) 5 MG TABLET ORAL Every Morning Qty = 15 Divalproex Sodium (Divalproex Sodium) 500 MG TABLET.DR ORAL TWICE DAILY Qty = 30 [place] Carbonate ([place] Carbonate ER) 450 MG TABLET.ER ORAL TWICE DAILY Qty = 60 Continue taking these medications: Ramelteon (Rozerem) 8 MG TABLET 8 Milligram ORAL AT BEDTIME Qty = 14 Instructions: Take 1 tab po QHS. Comments: Last Taken 04/02/18 @ 2028 PM Propranolol HCl (Propranolol HCl) 10 MG TABLET 10 Milligram ORAL TWICE DAILY Qty = 14 Instructions: Take 1 tab po BID Comments: LAST TAKEN 04/02/18 @ 2028 PM Olanzapine (Olanzapine) 10 MG TABLET 1 Tablet ORAL DAILY Comments: LAST TAKEN 04/02/18 @ 0757 AM Olanzapine (Olanzapine) 15 MG TABLET 1 Tablet ORAL Every night Comments: LAST TAKEN 04/02/18 @ 2028 PM Start taking the following new medications: Citalopram Hydrobromide (Citalopram HBr) 20 MG TABLET 1 Tablet ORAL DAILY Qty = 30 No Refills Comments: LAST TAKEN 04/02/18 @ 0757 AM Gabapentin (Neurontin) 300 MG CAPSULE 1 Capsule ORAL THREE TIMES DAILY Qty = 90 No Refills Comments: LAST TAKEN 04/02/18 @ 2028 PM Copies To: Marcy ALEXANDRE,Jeffrey
[2018-03-30 20:34] VITALS: BP 150/98
--- NOTE | 2018-03-31 06:47 | PN- Housestaff ---
Subjective Follow-up For: Homicidal ideation [place] toxicity Psychosis Subjective: Patient seen and examined at bedside. She said her racing thoughts/homicidal ideation decrease in intensity compared to yesterday. She denies suicidal ideation, suicidal or homicidal plans, feeling of being dying, l, fever, chills, abdominal pain, diarrhea, constipation of malnutrition Review of Systems Constitutional: Reports: see HPI. Objective Last 24 Hrs of Vital Signs/I&O Vital Signs Date Time Temp Pulse Resp B/P B/P Pulse O2 O2 Flow FiO2 Mean Ox Delivery Rate 03/31 2200 98.3 56 20 147/76 94 Room Air 03/31 2102 62 147/76 03/31 1506 98.6 60 18 122/72 96 Room Air 03/31 0841 71 132/72 03/31 0651 98.8 68 20 138/78 96 Room Air Intake & Output 03/31 1600 03/31 0800 03/31 0000 Intake Total 320 240 Output Total Balance 320 240 Intake, Oral 320 240 Physical Exam General Appearance: Alert, Oriented X3, Cooperative, No Acute Distress Assessment/Plan Assessment: 57-year-old female with with past medical history bipolar disorder, depression, alcohol dependence presented to emergency department for further evaluation of suicidal thoughts and lithium toxicity. At the time of presentation emergency department her vitals and labs are given below Vitals: Temperature was 98, heart rate 85, respiratory rate 18, blood pressure 1 1/55, pulse oximetry 94% Labs: WBC 6.1, hemoglobin/hematocrit 12.3/36.3, MCV 93.9 [place] level was 1.6 Sodium 138, potassium 3.5, GFR more than 60, creatinine point Problems list: * [place] toxicity * Homicidal/suicidal/racing thoughts * History of bipolar disorder, OCD, depression, anxiety [place] toxicity: * [place] is hold for now * Initially her lithium level was elevated * But no heart rhythm liver is normal Suicidal ideas/homicidal ideation: * Patient homicidal and dressings are subsided and intensity compared to yesterday * The patient plan is for transfer to another psychiatric facilities there was no psychiatric nerves today * Psychiatrist recommended to start 20 mg escitalopram * Patient and family want to ship some other hospital for high care * Patient CMR and other documentation ready * But is not available in any hospital for now * Once the bed available we can transfer the patien * will follow up on psychiatry recommendation History of bipolar disorder, OCD, depression, anxiety: We continue his home medication of olanzapine, propranolol, lorazepam, gabapentin.. DVT/GI prophylaxis Full code Problem List: 1. Depression 2. Anxiety 3. OCD (obsessive compulsive disorder) 4. Intoxication 5. Homicidal ideation Pain Ratin Pain Location: No pain Pain Goal: Remain pain free Pain Plan: Pain management pathway Tomorrow's Labs & Rationales: No labs
[2018-03-31 06:51] VITALS: BP 138/78
[2018-03-31 15:06] VITALS: BP 122/72
--- NOTE | 2018-03-31 16:33 | PN- Att Addend ---
Attending Addendum Attending Brief Note Patient in bed Vital signs are stable no fever. No new changes on physical examination. Patient was reevaluated by psychiatrist. Psychiatrist spoke to the patient and daughter decided the patient is gravely disabled with major depressive disorder recurrent very severe, and OCD. There is a search for an inpatient psych bed, patient and family agreeable. As soon as available we will transfer.
[2018-03-31 22:00] VITALS: BP 147/76
[2018-04-01 06:48] VITALS: BP 122/67
--- NOTE | 2018-04-01 08:06 | PN- Housestaff ---
Subjective Follow-up For: Psychosis Homicidal thoughts [place] toxicity Subjective: Patient seen and examined at bedside. She is still complaining of homicidal/ racing thoughts. She denies suicidal ideation, suicidal or homicidal intention, chest pain, palpitation, fever, chills, abdominal pain, diarrhea, constipation, burning micturition Review of Systems Constitutional: Reports: see HPI. Objective Last 24 Hrs of Vital Signs/I&O Vital Signs Date Time Temp Pulse Resp B/P B/P Pulse O2 O2 Flow FiO2 Mean Ox Delivery Rate 04/01 1000 68 04/01 0906 80 122/70 04/01 0800 76 04/01 0648 98.2 58 18 122/67 95 Room Air 03/31 2200 98.3 56 20 147/76 94 Room Air 03/31 2102 62 147/76 03/31 1506 98.6 60 18 122/72 96 Room Air Intake & Output 04/01 1600 04/01 0800 04/01 0000 Intake Total 480 Output Total Balance 480 Intake, Oral 480 Physical Exam General Appearance: Alert, Oriented X3, Cooperative, No Acute Distress Cardiovascular: Normal S1, Normal S2 Lungs: Clear to Auscultation, Normal Air Movement Abdomen: Normal Bowel Sounds, Soft, No Tenderness Assessment/Plan Assessment: 57-year-old female with with past medical history bipolar disorder, depression, alcohol dependence presented to emergency department for further evaluation of suicidal thoughts and lithium toxicity. At the time of presentation emergency department her vitals and labs are given below Vitals: Temperature was 98, heart rate 85, respiratory rate 18, blood pressure 1 1/55, pulse oximetry 94% Labs: WBC 6.1, hemoglobin/hematocrit 12.3/36.3, MCV 93.9 [place] level was 1.6 Sodium 138, potassium 3.5, GFR more than 60, creatinine point Problems list: * [place] toxicity * Homicidal/suicidal/racing thoughts * History of bipolar disorder, OCD, depression, anxiety [place] toxicity: * [place] is hold for now * Initially her lithium level was elevated * But no heart rhythm liver is normal Suicidal ideas/homicidal ideation: * Patient still having racing thoughts and homicidal ideation * Patient and family want to transfer to some other psychiatric inpatient facility * We are waiting for the psychiatrist recommendation to arrange bed for her * Patient document is ready and and he can go to other hospital once the bed is available History of bipolar disorder, OCD, depression, anxiety: We continue his home medication of olanzapine, propranolol, lorazepam, gabapentin.. DVT/GI prophylaxis Full code Problem List: 1. Depression 2. Anxiety 3. OCD (obsessive compulsive disorder) 4. Intoxication 5. Homicidal ideation 6. Bipolar disorder Pain Ratin Pain Location: No pain Pain Goal: Remain pain free Pain Plan: Pain management pathway Tomorrow's Labs & Rationales: No labs
[2018-04-01 14:17] VITALS: BP 141/86
[2018-04-01 14:28] VITALS: BP 136/80
--- NOTE | 2018-04-01 17:45 | PN- Att Addend ---
Attending Addendum Attending Brief Note Patient looks a little better today. Her parents are visiting her. Vital signs are stable no fever. No new changes on physical examination. Waiting for availability of the bed for follow-up inpatient psych. Intake & Output 04/01 1600 04/01 0400 03/31 1600 03/31 0400 03/30 1600 03/30 0400 Intake Total 800 480 320 240 720 200 Output Total 400 Balance 800 480 320 240 720 -200 Intake, IV 0 200 Intake, Oral 800 480 320 240 720 Number 0 Bowel Movements Output, Urine 400 Current Medications Sig/Gayatri Start time Last Medication Dose Route Stop Time Status Admin Acetaminophen 650 MG Q6P PRN 03/27 2215 AC 03/29 PO 1555 Acetaminophen 1,000 MG Q6P PRN 03/27 2215 AC IV Citalopram 20 MG DAILY 03/30 09 AC 04/01 Hydrobromide PO 0906 Gabapentin 300 MG Q8 PRN 03/30 1330 AC PO Heparin Sodium 5,000 UNIT Q8 03/28 0600 AC (Porcine) SC Nicotine 7 MG DAILY PRN 03/27 221 AC TOP Olanzapine 15 MG QPM 03/28 2100 AC 03/31 PO 2101 Olanzapine 10 MG DAILY 03/28 1230 AC 04/01 PO 0906 Polyethylene Glycol 17 GM AT BEDTIME PRN 03/27 2215 AC PO Propranolol HCl 10 MG BID 03/28 1230 AC 04/01 PO 0906 Ramelteon 8 MG AT BEDTIME 03/28 2100 AC 03/31 PO 2101 Senna/Docusate Sodium 1 TAB AT BEDTIME PRN 03/27 2215 AC PO Vital Signs Date Time Temp Pulse Resp B/P B/P Pulse O2 O2 Flow FiO2 Mean Ox Delivery Rate 04/01 1428 64 136/80 04/01 1417 98.3 50 18 141/86 98 Room Air 04/01 1200 64 04/01 1000 68 04/01 0906 80 122/70 04/01 0800 76 04/01 0648 98.2 58 18 122/67 95 Room Air 03/31 2200 98.3 56 20 147/76 94 Room Air 03/31 210 62 147/76
[2018-04-01 20:00] VITALS: BP 146/86
[2018-04-01 22:05] VITALS: BP 146/86
[2018-04-02 06:36] VITALS: BP 143/84
--- NOTE | 2018-04-02 06:59 | PN- Housestaff ---
Subjective Follow-up For: Psychosis Homicidal thoughts [place] toxicity Subjective: She is seen and examined at bedside. She still having mild racing thoughts, mild homicidal thoughts but intensity decreased compared to previous. She denies any suicidal ideation, suicidal or homicidal plans, palpitation, seizure, fever, chills, chest pain, abdominal pain, diarrhea, constipation, burning micturition Review of Systems Constitutional: Reports: see HPI. Objective Last 24 Hrs of Vital Signs/I&O Vital Signs Date Time Temp Pulse Resp B/P B/P Pulse O2 O2 Flow FiO2 Mean Ox Delivery Rate 04/02 0757 68 132/78 04/02 0636 98.2 63 20 143/84 98 Room Air 04/01 2209 68 04/01 2205 98.0 57 19 146/86 96 Room Air 04/01 2028 68 146/86 04/01 2000 98.3 68 18 146/86 04/01 1428 64 136/80 04/01 1417 98.3 50 18 141/86 98 Room Air 04/01 1200 64 Intake & Output 04/02 1600 04/02 0800 04/02 0000 Intake Total 480 240 Output Total Balance 480 240 Intake, IV 0 0 Intake, Oral 480 240 Number 0 0 Bowel Movements Physical Exam General Appearance: Alert, Oriented X3, Cooperative, No Acute Distress Cardiovascular: Normal S1, Normal S2 Lungs: Clear to Auscultation, Normal Air Movement Abdomen: Normal Bowel Sounds, Soft, No Tenderness, No Hepatospenomegaly, No Masses Assessment/Plan Assessment: 57-year-old female with with past medical history bipolar disorder, depression, alcohol dependence presented to emergency department for further evaluation of suicidal thoughts and lithium toxicity. At the time of presentation emergency department her vitals and labs are given below Vitals: Temperature was 98, heart rate 85, respiratory rate 18, blood pressure 1 1/55, pulse oximetry 94% Labs: WBC 6.1, hemoglobin/hematocrit 12.3/36.3, MCV 93.9 [place] level was 1.6 Sodium 138, potassium 3.5, GFR more than 60, creatinine point Problems list: * [place] toxicity * Homicidal/suicidal/racing thoughts * History of bipolar disorder, OCD, depression, anxiety [place] toxicity: * [place] is hold for now Suicidal ideas/homicidal ideation: * Today patient resting thoughts and homicidal ideation intensity decreased compared to yesterday * Patient and family want to transfer to some other psychiatric inpatient facility * We are waiting for the psychiatrist recommendation to arrange bed for her * Patient document is ready and and he can go to other hospital once the bed is available * Psychiatric recommendation is awaited History of bipolar disorder, OCD, depression, anxiety: We continue his home medication of olanzapine, propranolol, lorazepam, gabapentin.. DVT/GI prophylaxis Full code Problem List: 1. Depression 2. Anxiety 3. Depressed 4. Intoxication 5. OCD (obsessive compulsive disorder) 6. Auditory hallucination 7. Homicidal ideation 8. Bipolar disorder Pain Ratin Pain Location: No pain Pain Goal: Remain pain free Pain Plan: Pain management pathway Tomorrow's Labs & Rationales: No labs
--- NOTE | 2018-04-02 10:59 | PN- Att Addend ---
Attending Addendum Attending Brief Note continued looking forPatient looking and feeling better today vital signs are stable no fever no new changes on physical examination. Depending on psychiatric evaluation a place for inpatient follow-up or may decide to go home with outpatient follow-up. Intake & Output 04/02 1600 04/02 0400 04/01 1600 04/01 0400 03/31 1600 03/31 0400 Intake Total 480 240 800 480 320 240 Output Total Balance 480 240 800 480 320 240 Intake, IV 0 0 0 Intake, Oral 480 240 800 480 320 240 Number 0 0 0 Bowel Movements Current Medications Sig/Gayatri Start time Last Medication Dose Route Stop Time Status Admin Acetaminophen 650 MG Q6P PRN 03/27 221 AC 03/29 PO 1555 Acetaminophen 1,000 MG Q6P PRN 03/27 221 AC IV Citalopram 20 MG DAILY 03/30 09 AC 04/02 Hydrobromide PO 0757 Gabapentin 300 MG Q8 PRN 03/30 1330 AC 04/02 PO 1003 Heparin Sodium 5,000 UNIT Q8 03/28 0600 AC (Porcine) SC Nicotine 7 MG DAILY PRN 03/27 221 AC TOP Olanzapine 15 MG QPM 03/28 2100 AC 04/01 PO 202 Olanzapine 10 MG DAILY 03/28 1230 AC 04/02 PO 0757 Patient Medication 1 ED ONE ONE 04/02 1030 CO Teaching ED 04/02 1031 Patient Medication 1 ED ONE ONE 04/02 1030 CO Teaching ED 04/02 1031 Polyethylene Glycol 17 GM AT BEDTIME PRN 03/27 2215 AC PO Propranolol HCl 10 MG BID 03/28 1230 AC 04/02 PO 0757 Ramelteon 8 MG AT BEDTIME 03/28 2100 AC 04/01 PO 2028 Senna/Docusate Sodium 1 TAB AT BEDTIME PRN 03/27 2215 AC PO Vital Signs Date Time Temp Pulse Resp B/P B/P Pulse O2 O2 Flow FiO2 Mean Ox Delivery Rate 04/02 0757 68 132/78 04/02 0636 98.2 63 20 143/84 98 Room Air 04/01 2209 68 04/01 2205 98.0 57 19 146/86 96 Room Air 04/01 2028 68 146/86 04/01 2000 98.3 68 18 146/86 04/01 1428 64 136/80 04/01 1417 98.3 50 18 141/86 98 Room Air 04/01 1200 64
[2018-04-02 14:07] VITALS: BP 145/68
--- NOTE | 2018-04-02 15:38 | PN- Psychiatry ---
Assessment/Plan Impression: Patient seen this morning, still complaining of anxiety and fears of hurting her family. Has not used gabapentin. Given 1 dose of gabapentin 300 mg. Seen this afternoon and found medication helpful. No bed has been available as either this or any other hospital over the weekend. Will continue gabapentin tonight. Review in the morning and if the improvement is sustained, discharge home. Suggestion: - Gabapentin 300 mg p.o. 3 times a day - Bed search ongoing. -If improvement on gabapentin is sustained may be able to discharge home tomorrow with follow-up on an outpatient basis. Subjective Subjective: Reports some improvement wuith addition of gabapentin. Open to the possibility of returning home tomorrow if improvement is sustained. Objective Last 24 Hrs of Vital Signs/I&O Vital Signs Date Time Temp Pulse Resp B/P B/P Pulse O2 O2 Flow FiO2 Mean Ox Delivery Rate 04/02 1407 98.2 52 18 145/68 95 Room Air 04/02 0757 68 132/78 04/02 0636 98.2 63 20 143/84 98 Room Air 04/01 2209 68 04/01 2205 98.0 57 19 146/86 96 Room Air 04/01 2028 68 146/86 04/01 2000 98.3 68 18 146/86 Intake & Output 04/02 1600 04/02 0800 04/02 0000 Intake Total 900 480 240 Output Total Balance 900 480 240 Intake, IV 0 0 0 Intake, Oral 900 480 240 Number 0 0 0 Bowel Movements
[2018-04-02 15:46] VITALS: BP 140/68
[2018-04-02] MEDS ORDERED: NEURONTIN300 M1 PO (17:58)
[2018-04-02 21:06] VITALS: BP 136/71
== END 2018-04-02 21:35 | disposition other institution (70) | DRG 812 ==
LOC: ERH 13:43 → ERHI 20:02 → 2NB 20:02 → ERHI 03-28 07:43 → ENRESERV 03-28 17:56 → ENTRNSPT 03-28 19:11 → 2NB 03-28 19:11 → EDTRNSPT 03-28 19:17 → EDTRNSPTSTS 03-28 19:17 → 2NB 03-28 19:24 → CMPTRNSPT 03-28 19:35 → ENPENDDIS 04-02 18:08 → 2NB 04-02 21:35
PROVIDERS: Physician Assistant Medical; Student in an Organized Health Care Education/Training Program
DX: T43.591A Poisoning by other antipsychotics and neuroleptics, accidental (unintentional), initial encounter (principal); R44.0 Auditory hallucinations; Z72.89 Other problems related to lifestyle; F17.210 Nicotine dependence, cigarettes, uncomplicated; R45.850 Homicidal ideations; R45.851 Suicidal ideations; F31.9 Bipolar disorder, unspecified; F41.9 Anxiety disorder, unspecified; F41.0 Panic disorder [episodic paroxysmal anxiety]; G25.81 Restless legs syndrome; Z91.14 Patient's other noncompliance with medication regimen; F33.9 Major depressive disorder, recurrent, unspecified; F42.9 Obsessive-compulsive disorder, unspecified; R63.1 Polydipsia
CPT/HCPCS: 2NBSP; ERO; 80307; 81001; 82436; 93005; 93010; G0480; J1644

== ENCOUNTER 2018-04-02 16:10 | Inpatient (IN) | payer OTHER ==
[~2018-04-02] VITALS: Ht 167.6 cm; Wt 85.7 kg
[~2018-04-02 16:10] MED LIST changes: +LITHIUM CARBON450 M1 PO
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
[2018-04-02] MEDS ORDERED: NEURONTIN300 M1 PO (17:58)
[2018-04-03 07:54] VITALS: BP 158/87
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
--- NOTE | 2018-04-03 13:08 | PN- Att Addend ---
Attending Addendum Attending Brief Note 57-year-old white female originally admitted to the floor with the lithium toxicity, she did well but did not feel safe going home still having those homicidal feelings, for those reasons she is transferred to Inpatient Psychiatry for further treatment and adjustment of the medications
--- NOTE | 2018-04-03 13:31 | SOCIAL WORKER PROG NOTE PSYCH ---
Social Work Progress Note Progress Note Suzanne was in her room resting after lunch. Met with me in her room. She was in blue scrubs. She and I are familiar with eachother from previous admissions. She was pleasant and cooperative. She said she has been depressed with racing thoughts. She identifies this as a change for her in the last month. She has presented with these symptoms before. She reported that she was having negative feelings about her family and thoughts to hurt them, but stated that there is no reason for her to feel that way. Denies having those thoughts today. She said she has too much "idle time" on her hands. 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 She feels a goal for her is to get a job. She has been feeling unmotivated and energetic at home and states she doesn't do anything. Lives with her and 2 adult children Tima and Lorrie. She is close with her daughter Gabriela. She has participated in past family meetings on [facility]. She would like her to be part of her treatment again. She shared that Gabriela continues to come to the house to set up her med box for the week. I asked about her taking too much of her medication, which ultimately led to her admission here. She said she took 3 extra Zyprexa and 3 extra [place] in attempt to feel better. She denied it was a suicide attempt. She said she notified her daughter Gabriela after she started not feeling well. She also mentioned that she has been drinking too much water. When asked why she was doing this? She said she thinks she has OCD and just couldn't stop. She has been in [facility] with Niru Mclaughlin APRN. She reports this is going well, but her meds are changing alot. She reports she just started Prozac. Plans on going to groups today and taking a shower. Called Suzanne's daughter Gabriela. She is available for a phone conference tomorrow or .
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
[2018-04-03 19:54] VITALS: BP 138/86
[2018-04-04 07:55] VITALS: BP 154/84
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
--- NOTE | 2018-04-04 13:29 | CP SOUTH PROGRESS NOTE PSYCH ---
Psych (Inpt) Progress Note Progress Note Include the following elements, when applicable: Involvement in the active treatment of the patient with behavioral observations of the patient and the patient's response to the treatment. Review of the ongoing treatment process in the context of the treatment plan. Indication of how multi-disciplinary staff members are carrying out the treatment plan. Plans for future interventions and recommendations for revision of the treatment plan. Liaison with other physicians/providers. Progress Note: Case and treatment plan discussed in team meeting. Staff reports that the patient is denying suicidal ideation. Described as isolative. Went to a few groups yesterday. Patient seen at 10:52 AM. Reports she just showered. States "I'm pretty good. I still have the racing thoughts." Affect is brighter today and she appears more energetic. Mood is good. Rates sad mood 5/10 and anxiety maybe 5/10. Feels hopeless, helpless, worthless and guilty. Denies active suicidal ideation. Reports having somewhat passive suicidal ideation. Gives a safety promise for here. Denies homicidal ideation. Denies homicidal ideation. Denies homicidal thoughts towards family members. Denies auditory and visual hallucinations and paranoid ideation. Describes sleep and appetite as good. Reports energy is a little bit low. Patient and I agreed to stop her propranolol at this time. Tolerating current medications well, without complaint. IMPRESSION: Slow progress. Continue present treatment plan. Family meeting is scheduled for tomorrow at 2 PM. Continues to require inpatient level of care. Anticipate likely discharge early next week to home. We will look into the possibility of a visiting nurse.
[2018-04-04 19:54] VITALS: BP 142/84
[2018-04-05 08:14] VITALS: BP 144/96
--- NOTE | 2018-04-05 11:30 | SOCIAL WORKER PROG NOTE PSYCH ---
Social Work Progress Note Progress Note Psychiatric CHW Note Researched therapist in [facility] that specialize in OCD. Left message for Vale Montero LCSW in [place] ([phone]) to see if accepting new pts at this time. Anastasia Jose (Tish)
--- NOTE | 2018-04-05 14:31 | SOCIAL WORKER PROG NOTE PSYCH ---
Social Work Progress Note Progress Note Suzanne continues to feel depressed, but this is something that she will be continuing to work through in the upcoming weeks. Waiting for the Prozac to help her start feeling better. Attended groups today. Still not interested in IOP, despite her group participation here on the unit. Phone conference held with her daughter Gabriela today at 2pm. Dr. Saravia was also present for this conversation. Gabriela had questions about Mom's current medications and diagnosis. Dr. Saravia reviewed the meds and stated that he feels that Niru Mclaughlin BARK SCALER knows her pretty well and she is thinking she has a Bipolar Dx. Reviewed the plan of her returning to [facility] and setting up individual therapy. I let her know we were working on setting something up. Discussed the plan of Suzanne's daughter giving Suzanne her medication daily. Gabriela sounded okay with the idea of Mom discharging tomorrow. I will connect with her to plan a time.
--- NOTE | 2018-04-05 14:46 | SOCIAL WORKER PROG NOTE PSYCH ---
Elijah Arce 04/05/18 1436: Social Work Progress Note Progress Note I Elijah Arce (CAD DRAFTSMAN international organizer) called [facility] to schedule an intake and med evaluation for Suzanne Antunez. Her intake appointment is scheduled for Monday at 8:00am. Suzanne has a med evaluation scheduled on April 16 2018 at !:30 pm doctor Pamela. When at the appointment she just needs to say she wants to be put backb on Niru Mclaughlin's schedule
--- NOTE | 2018-04-05 17:10 | CP SOUTH PROGRESS NOTE PSYCH ---
Psych (Inpt) Progress Note Progress Note Include the following elements, when applicable: Involvement in the active treatment of the patient with behavioral observations of the patient and the patient's response to the treatment. Review of the ongoing treatment process in the context of the treatment plan. Indication of how multi-disciplinary staff members are carrying out the treatment plan. Plans for future interventions and recommendations for revision of the treatment plan. Liaison with other physicians/providers. Progress Note: Case and treatment plan discussed in team meeting. Staff reports that the patient is denying suicidal ideation. Showering. Going to groups. Taking medications. Appearing less depressed. Patient seen at 11:29 AM. Reports feeling good. Affect is brighter. Complains of racing thoughts which are about the same, unchanged. The thoughts are mostly about her family. She will not permit a family meeting with her and reports this is because he thinks she is just here because of anxiety. Mood: "I 'm actually not that bad as far as my mood." Rates sad mood 9/10 though. Rates anxiety probably 5/10. Feels hopeless, helpless and guilty. Denies feeling worthless. Denies active and passive suicidal ideation. Denies homicidal ideation. Denies homicidal thoughts towards family members. Denies auditory and visual hallucinations and paranoid ideation. Describes sleep and appetite as pretty good. Energy is low. Tolerating medications but still having racing thoughts (which are chronic). Refusing to go to an IOP or have a visiting nurse. I participated in family meeting with patient, daughter by phone and health social work professor. Patient's and daughter's questions were addressed. IMPRESSION: Slow progress. Continue present treatment plan. We will be checking a Tegretol level tomorrow morning. Anticipate discharge tomorrow with outpatient follow- up.
--- NOTE | 2018-04-05 17:24 | SOCIAL WORKER PROG NOTE PSYCH ---
Social Work Progress Note Progress Note Determination Status: PENDED The services requested require additional review. You will be contacted regarding the status of this request if further information is needed. An authorization decision will be made within the required timeframes and details of that decision may be found under the member's authorization history. Member Name Member ID Member Subscriber Name Subscriber ID LAURA GRACE [id number] LAURA GRACE [id number] Pended Authorization # Client Authorization # Type of Request [id number] CONCURRENT Date of Admission/ Start of Services Requested From Submission Date 04/02/2018 04/05/2018 04/05/2018 Level of Service Type of Service Level of Care Type of Care INPATIENT/[facility]PATIENT [facility]PITAL Reason Code P76 Provider Name & Address Provider ID Provider Alternate ID NPI # for Authorization MARTHA YANG [address] [place] [id number] N/A Message P76 Attached Documents There are no documents attached with this Authorization Request
[2018-04-05 19:27] VITALS: BP 153/84
[2018-04-06 07:51] VITALS: BP 155/99
[2018-04-06] MEDS ORDERED: CARBAMAZEPINE200 M3 PO (10:54)
[2018-04-06] MEDS ORDERED: GABAPENTIN300 M2 PO (10:54)
[2018-04-06] MEDS ORDERED: OLANZAPINE10 M1 PO (10:54)
[2018-04-06] MEDS ORDERED: OLANZAPINE15 M1 PO (10:54)
[2018-04-06] MEDS ORDERED: FLUOXETINE HCL20 M2 PO (10:54)
[2018-04-06] MEDS ORDERED: NICOTINE PATCH1 EAC1 TOP (10:54)
--- NOTE | 2018-04-06 11:01 | Patient Discharge Instructions ---
Psych Discharge Inst General Discharge Information Reason for Admission: Overused lithium and Zyprexa to try to stop racing thoughts. Psy Discharge Primary Diag+ Bipolar d/o, depressed Psy Discharge Secondary Diag+ R/o obsessive compulsive disorder Summary Tests/Major Procedures Lab ALT 42 U/L 03/27/18 1401 AST 19 U/L 03/27/18 1401 BUN 7 mg/dL 03/28/18 0556 Calcium 9.8 mg/dL 03/27/18 1401 Carbon Dioxide 23 mmol/L 03/28/18 0556 Chloride 111 mmol/L H 03/28/18 0556 Cholesterol 212 MG/DL H 04/06/18 0630 Cholesterol/HDL Ratio 5 % H 04/06/18 0630 Creatinine 0.5 mg/dL 03/28/18 0556 Estimated GFR > 60 ml/min 03/28/18 0556 Free T4 0.96 ng/dL 04/03/18 0053 Glucose 134 mg/dL H 03/27/18 1401 HDL Cholesterol 41 mg/dL 04/06/18 0630 Hemoglobin A1c 5.2 % 04/06/18 0630 LDL Cholesterol, Calc 146 mg/dL H 04/06/18 0630 Potassium 3.8 mmol/L 03/28/18 0556 Sodium 140 mmol/L 03/28/18 0556 TSH 4.080 uIU/mL 04/03/18 0053 Thyroxine (T4) 7.7 ug/dL 04/03/18 0053 Triglycerides 128 mg/dL 04/06/18 0630 Hct 36.3 % L 03/28/18 0556 Hgb 12.3 G/DL 03/28/18 0556 MCH 31.8 PG H 03/28/18 0556 Plt Count 209 /CUMM 03/28/18 0556 RBC 3.87 /CUMM L 03/28/18 0556 WBC 6.1 /CUMM 03/28/18 0556 Acetaminophen < 10.0 ug/mL L 03/27/18 1401 Carbamazepine 9.0 ug/mL 04/06/18 0630 [place] 1.6 mmol/L*H 03/27/18 1401 [place] 2.0 mmol/L*H 03/27/18 1650 [place] 1.3 mmol/L H 03/27/18 2000 [place] 1.1 mmol/L 03/28/18 0556 [place] 1.1 mmol/L 03/28/18 0019 Serum Alcohol < 10.0 MG/DL 03/27/18 1401 EKG 03/28/18 showed sinus rhythm @ 66, minor changes since previous tracing, normal EKG, QT 408, QTc 428. Studies Pending at DC: None. Patient Instructions Contact Information Your Psychiatrist on [facility] was Rani ALEXANDRE,Akil * If you are experiencing an emergency related to this hospitalization, please call [phone] to contact the treating psychiatrist or the psychiatrist-on- call. * To Request a copy of your medical records, please contact the Medical Records Department at [phone]. * To request results of studies pending at the time of discharge, please call [phone]. * Continue your Medications until directed to stop by your Healthcare provider. General Medication Information Please continue to take your new medications and your continued home medications , unless otherwise indicated on your discharge medication list, or unless directed by your MD or MEAT PROCESSING CENTER MANAGER to stop them. Special Instructions Diet Regular Activity Normal Other Inst/Recommendations See PCP about blood pressure and high lipids. - Tobacco Use Treatment Offered Post DC Medications Offered: Script Given-See Med List Post DC Tobacco Treatment Plan: [place] [facility] Program Appt Date: 04/11/18 Program Appt Time: 1600 - EtOH/Drug Use D/O Treatment Offered Post DC Medications Offered: NA-No EtOH/Drug Use D/O Post DC EtOH/SubAbuse TX Plan: NA-No EtOH/Drug Use D/O Metabolic Screening () Not Applicable, patient not on a neuroleptic. OR () Patient on a neuroleptic(s) . Enter below results for Hemoglobin A1C, and lipid panel if obtained during the last 365 days. BMI: 30.500 Blood Pressure: 155/99 Laboratory Results From [facility] (If applicable): [x] Lab Cholesterol 212 MG/DL H 04/06/18 0630 Cholesterol/HDL Ratio 5 % H 04/06/18 0630 HDL Cholesterol 41 mg/dL 04/06/18 0630 Hemoglobin A1c 5.2 % 04/06/18 0630 LDL Cholesterol, Calc 146 mg/dL H 04/06/18 0630 Triglycerides 128 mg/dL 04/06/18 0630 Advance Directives Does the Patient have Medical Advance Directives No/Refused further info Does Pt have Psychiatric Advance Directives? No/Refused further info Does Patient have a Designated Surrogate Decision Maker: No Information About Psychiatric Advance Directives Provided? Refused Discharge Plan Post Hospital Treatment Plan: Return to home and family. Follow up with therapist (TBA). Follow up with Niru Mclaughlin APRN.
--- NOTE | 2018-04-06 13:52 | SOCIAL WORKER PROG NOTE PSYCH ---
Social Work Progress Note Progress Note Talked to Suzanne's daughter Gabriela and planned a fruit picker time for discharge today at 2pm. Suzanne's daughter Lorrie will pick her up. Suzanne was given an appt. for an individual therapist for 04/10 10am at [facility] [place]. Talked to Suzanne about her follow up appts. She was fine with seeing someone in [place]. Encouraged her to utilize the individual therapy to get things out that have been festering for a long time. She reports that her thoughts are managable today and that she is ready to go home. She understands the safety plan around her medications.
--- NOTE | 2018-04-06 14:32 | CP SOUTH PROGRESS NOTE PSYCH ---
Psych (Inpt) Progress Note Progress Note Include the following elements, when applicable: Involvement in the active treatment of the patient with behavioral observations of the patient and the patient's response to the treatment. Review of the ongoing treatment process in the context of the treatment plan. Indication of how multi-disciplinary staff members are carrying out the treatment plan. Plans for future interventions and recommendations for revision of the treatment plan. Liaison with other physicians/providers. Progress Note: Case and treatment plan discussed in team meeting. Staff reports that the patient is denying suicidal ideation. Tegretol level is 9.0. Described as calm. Patient seen at 10:44 AM with PA student. The patient feels pretty good. Affect is calm and blunted to euthymic. Mood is good. Rates sad mood and anxiety both 3/10. Denies feeling hopeless, helpless, worthless or guilty. Denies active and passive suicidal ideation. Denies homicidal ideation. Denies homicidal thoughts towards family. Denies auditory and visual hallucinations and paranoid ideation. Describes sleep and appetite as good. States energy could be a little bit better. Appears awake and alert. Tolerating medications except for low energy. Feels ready and safe for discharge. IMPRESSION: Condition improved. Okay for discharge today to home and family with outpatient follow up and with medication management by Niru Mclaughlin APRN.
--- NOTE | 2018-04-06 14:35 | SOCIAL WORKER PROG NOTE PSYCH ---
Social Work Progress Note Faxed Referral(s) Referred To: [facility]PS Transition of Care Documents sent: Health Summary Faxed to: [facility] Fax #: [phone] Faxed by: Gloria Oliva Date faxed: 04/06/18 Time Faxed: [phone]
--- NOTE | 2018-04-06 14:37 | DISCHARGE SUMMARY REPORT-PSYCH ---
Visit Information Visit Dates/Diagnosis' Admission Date: 04/02/18 Discharge Date: 04/06/18 Reason for Admission: Overused lithium and Zyprexa to try to stop racing thoughts. Psy Discharge Primary Diag: Bipolar d/o, depressed Psy Discharge Secondary Diag: R/o obsessive compulsive disorder Hospital Course Significant Lab Findings: Lab ALT 42 U/L 03/27/18 1401 AST 19 U/L 03/27/18 1401 BUN 7 mg/dL 03/28/18 0556 Calcium 9.8 mg/dL 03/27/18 1401 Carbon Dioxide 23 mmol/L 03/28/18 0556 Chloride 111 mmol/L H 03/28/18 0556 Cholesterol 212 MG/DL H 04/06/18 0630 Cholesterol/HDL Ratio 5 % H 04/06/18 0630 Creatinine 0.5 mg/dL 03/28/18 0556 Estimated GFR > 60 ml/min 03/28/18 0556 Free T4 0.96 ng/dL 04/03/18 0053 Glucose 134 mg/dL H 03/27/18 1401 HDL Cholesterol 41 mg/dL 04/06/18 0630 Hemoglobin A1c 5.2 % 04/06/18 0630 LDL Cholesterol, Calc 146 mg/dL H 04/06/18 0630 Potassium 3.8 mmol/L 03/28/18 0556 Sodium 140 mmol/L 03/28/18 0556 TSH 4.080 uIU/mL 04/03/18 0053 Thyroxine (T4) 7.7 ug/dL 04/03/18 0053 Triglycerides 128 mg/dL 04/06/18 0630 Hct 36.3 % L 03/28/18 0556 Hgb 12.3 G/DL 03/28/18 0556 MCH 31.8 PG H 03/28/18 0556 Plt Count 209 /CUMM 03/28/18 0556 RBC 3.87 /CUMM L 03/28/18 0556 WBC 6.1 /CUMM 03/28/18 0556 Acetaminophen < 10.0 ug/mL L 03/27/18 1401 Carbamazepine 9.0 ug/mL 04/06/18 0630 [place]mling 1.6 mmol/L*H 03/27/18 1401 Kremmling 2.0 mmol/L*H 03/27/18 1650 Kremmling 1.3 mmol/L H 09/18/18 2000 K[place]mling 1.1 mmol/L 03/28/18 0556 K[place]mling 1.1 mmol/L 03/28/18 0019 Serum Alcohol < 10.0 MG/DL 03/27/18 1401 EKG 03/28/18 showed sinus rhythm @ 66, minor changes since previous tracing, normal EKG, QT 408, QTc 428. Course Complications: None. Consultations: The patient was seen by Dr. Jeffrey Vidal for a follow up note. Allergies: Coded Allergies: NO KNOWN ALLERGIES (09/14/15) Hospital Course/TX Response: The patient was monitored on the unit for safety and mood disturbance. She participated in multi-modal treatments on the unit. Kremmling was discontinued because of misuse prior to admission. Tegretol was restarted. Zyprexa was returned to pre-admission dosing. Prozac was started for depressive ruminations and OCD symptoms. Patient found prn gabapentin helpful. Mood and affect have improved. Patient has reported persistence of racing thoughts, which appear to be chronic. Progress note from date of discharge, 04/06/18: "Case and treatment plan discussed in team meeting. Staff reports that the patient is denying suicidal ideation. Tegretol level is 9.0. Described as calm. Patient seen at 10:44 AM with PA student. The patient feels pretty good. Affect is calm and blunted to euthymic. Mood is good. Rates sad mood and anxiety both 3/10. Denies feeling hopeless, helpless, worthless or guilty. Denies active and passive suicidal ideation. Denies homicidal ideation. Denies homicidal thoughts towards family. Denies auditory and visual hallucinations and paranoid ideation. Describes sleep and appetite as good. States energy could be a little bit better. Appears awake and alert. Tolerating medications except for low energy. Feels ready and safe for discharge. IMPRESSION: Condition improved. Okay for discharge today to home and family with outpatient follow up and with medication management by Niru Mclaughlin APRN." Discharge HBIPS - Tobacco Use Treatment Offered Post DC Medications Offered: Script Given-See Med List Post DC Tobacco Treatment Plan: [facility] Tobacco Tx Pgm Program Appt Date: 04/11/18 Program Appt Time: 1600 - EtOH/Drug Use D/O Treatment Offered Post DC Medications Offered: NA-No EtOH/Drug Use D/O Post DC EtOH/SubAbuse TX Plan: NA-No EtOH/Drug Use D/O Metabolic Screening - Screen if on a Neuroleptic Medication - Metabolic screening should include: - Blood Pressure, BMI, Glucose or Hgb A1c, & a - Lipid profile from within the past 365 days. Metabolic Screening () Not Applicable, patient not on a neuroleptic. OR () Patient on a neuroleptic(s) . Enter below results for Hemoglobin A1C, and lipid panel if obtained during the last 365 days. BMI: 30.500 Blood Pressure: 155/99 Laboratory Results From [facility] (If applicable): [x Lab Cholesterol 212 MG/DL H 04/06/18 0630 Cholesterol/HDL Ratio 5 % H 04/06/18629 HDL Cholesterol 41 mg/dL 04/06/18629 Hemoglobin A1c 5.2 % 04/06/18 06 LDL Cholesterol, Calc 146 mg/dL H 04/06/18 0630 Triglycerides 128 mg/dL 04/06/18 0630 ] Discharge Instructions General Discharge Information Multiple Neuroleptics: ([x]) Not Applicable OR Document below three failed attempts at monotherapy, or a plan to taper to monotherapy, or augmentation of Clozapine. () Discharge Diet Regular Discharge Activity Normal DC Disposition: Returning to home and family. Referrals Ordered Referrals OUTPATIENT PSYCHIATRY 04/10/18 248/[address] [place] [address] Intake appt. at [facility] 04/10/18 8am [address] [place] [address] OUTPATIENT PSYCHIATRY 04/16/18 248/[address] [place] [address] [facility] Outpatient Psychiatry appt. with Dr. Villasenor 04/16/18 1:30pm Provider Referral 04/10/18 For Providers: [Jesus Burt] For Groups: [[facility]] [facility] appt. with Jesus Burt 04/10/18 10am [address] [place] [phone] Prescriptions Stop taking the following medications: Ramelteon (Rozerem) 8 MG TABLET ORAL AT BEDTIME Qty = 14 Propranolol HCl (Propranolol HCl) 10 MG TABLET ORAL TWICE DAILY Qty = 14 Citalopram Hydrobromide (Citalopram HBr) 20 MG TABLET ORAL DAILY Qty = 30 Gabapentin (Neurontin) 300 MG CAPSULE ORAL THREE TIMES DAILY Qty = 90 Continue taking these medications: Olanzapine (Olanzapine) 10 MG TABLET 1 Tablet ORAL DAILY Qty = 14 Comments: Last Taken:04/06/18 Time:9AM This prescription has been renewed Start taking the following new medications: Nicotine (Nicotine Patch) 7 MG/24 HOUR PATCH.TD24 1 Patch On the skin DAILY Qty = 14 No Refills Comments: Last Taken:04/06/18 Time:9AM Carbamazepine (Carbamazepine) 200 MG TABLET 1 Tablet ORAL TWICE DAILY Qty = 28 No Refills Comments: Last Taken:04/06/18 Time:9AM Gabapentin (Gabapentin) 300 MG CAPSULE 1 Capsule ORAL EVERY SIX HOURS NEEDED as needed for ANXIETY/AGITATION/ INSOMNIA Qty = 42 No Refills Comments: Last Taken:04/03/18 Time:10PM Fluoxetine HCl (Fluoxetine HCl) 20 MG CAPSULE 1 Capsule ORAL DAILY Qty = 14 No Refills Comments: Last Taken:04/06/18 Time:9AM The following medications have been changed: Old: Olanzapine (Olanzapine) 15 MG TABLET 1 Tablet ORAL Every night New: Olanzapine (Olanzapine) 15 MG TABLET 1 Tablet ORAL Every night Qty = 14 Comments: Last Taken:04/05/18 Time:9PM Other Inst/Recommendations See PCP about blood pressure and high lipids. Studies Pending at Discharge None. Copies To: Niru Mclaughlin APRN
== END 2018-04-06 14:45 | DRG 753 ==
LOC: CP SOUTH 16:10
PROVIDERS: Psychiatry & Neurology Psychiatry
DX: F31.9 Bipolar disorder, unspecified (principal); F42.9 Obsessive-compulsive disorder, unspecified
CPT/HCPCS: 36415; J0515; J1630